=== PATIENT | male | born 1950 | race Caucasian/White ===

== ENCOUNTER 2024-03-11 10:55 | Inpatient (IN) | payer MEDICARE, SELFPAY ==
[2024-03-11] VITALS (54 sets, daily range): BP systolic 73–150; BP diastolic 22–72; PULSE 65–97; RESP 16–34; TEMP 35.2–39.4; O2SAT 80–98; BMI 28.3; BMI 29.1
--- NOTE | ~2024-03-11 | US_ITS ---
EXAMINATION: US TRIPLEX LOWER EXTREMITY, BILATERAL CLINICAL INFORMATION: Dyspnea, hypoxia,? DVT COMPARISON: None available. TECHNIQUE: Color-flow triplex imaging with spectral analysis and compression Doppler were performed on the bilateral lower extremities. FINDINGS: The right calf peroneal and posterior tibial veins are not well visualized. Respiratory variation, normal compression and augmented flow are otherwise noted throughout the bilateral lower extremities. The visualized bilateral common femoral vein, superficial femoral vein, profunda femoral vein, popliteal vein and left midcalf peroneal and posterior tibial venous segments show no evidence of deep venous thrombosis bilaterally. There is no Queen's cyst. US/US venous duplex LE BI IMPRESSION: The right calf peroneal and posterior tibial veins are not well visualized.Otherwise no evidence of deep venous thrombosis involving the bilateral lower extremities. Electronically signed by: Chris You MD 03/12/2024 05:58 PM EDT
--- NOTE | ~2024-03-11 | CT_ITS ---
EXAMINATION: CT HEAD WITHOUT CONTRAST CLINICAL INFORMATION: Altered mental status. COMPARISON: None. TECHNIQUE: Contiguous axial imaging was performed from the skull base to vertex without intravenous administration of contrast. This CT examination was performed using dose optimization techniques as appropriate, variously including the following: *Automated exposure control *Adjustment of mA and/or kV according to patient size (this includes techniques or standardized protocols for targeted exams where dose is matched to indication/reason for exam; i.e. extremities or head) *Use of iterative reconstruction technique DLP: 762 mGy-cm FINDINGS: There is no evidence of acute intracranial hemorrhage or edematous territorial infarction. Scattered hypoattenuation in the periventricular and deep white matter are consistent with moderate microangiopathy. [place]-white matter differentiation is preserved. Proportional prominence of the ventricles and sulcal spaces. No evidence for obstructive hydrocephalus. No abnormal mass effect or midline shift. No extra-axial fluid collections. No acute soft tissue or osseous abnormalities. Partial opacification of the left sphenoidal sinus. Mild mucosal thickening of the remaining of the paranasal sinuses. The mastoids and middle ear cavities are clear. Bilateral lens extraction. CT/CT head/brain wo IV con IMPRESSION: 1. No evidence of acute intracranial hemorrhage or edematous territorial infarction. 2. Chronic microangiopathy and generalized cerebral volume loss. Electronically signed by: Cecy Landin MD 03/11/2024 03:23 PM EDT
--- NOTE | ~2024-03-11 | XR_ITS ---
EXAMINATION: XR CHEST CLINICAL INFORMATION: Shortness of breath. COMPARISON: None available. TECHNIQUE: Frontal view of the chest was obtained. FINDINGS: Right sided chest port tip overlies the expected location of the right atrium. Enlarged cardiomediastinal silhouette. Multifocal patchy and consolidative airspace opacities. Small right pleural effusion. No significant pneumothorax. No acute osseous findings. EKG leads overlie the chest. XR/XR chest 1V IMPRESSION: 1. Multifocal patchy and consolidative airspace opacities concerning for atypical pneumonia. Recommend clinical correlation and short-term follow-up. 2. Small right pleural effusion. 3. Enlarged cardiomediastinal silhouette could represent a combination of cardiomegaly, pericardial effusion and lymphadenopathy. Electronically signed by: Cecy Landin MD 03/11/2024 03:52 PM EDT
--- NOTE | 2024-03-11 11:05 | ECG_ITS ---
Test Reason : AMS Blood Pressure : / mmHG Vent. Rate : 087 BPM Atrial Rate : 087 BPM P-R Int : 146 ms QRS Dur : 076 ms QT Int : 344 ms P-R-T Axes : 016 -10 001 degrees QTc Int : 413 ms Sinus rhythm with Premature supraventricular complexes Minimal voltage criteria for LVH, may be normal variant ( R in aVL ) Nonspecific ST and T wave abnormality Abnormal ECG No previous ECGs available Referred By: Oriana Morales Electronically Signed By:Arie Chapman
[2024-03-11 11:16] LABS: Glucose, Whole Blood 202 mg/dL (60-115)
[2024-03-11] MEDS: 0.9 % Sodium Chloride 1,000 ML 999 ML IV ×2 (11:16→11:17)
[2024-03-11] MEDS: 0.9 % Sodium Chloride 500 ML IV (11:17)
[2024-03-11 11:18] LABS: ABG Base Excess 13.6 mmol/L; ABG HCO3 38 mmol/L (22-26); ABG pCO2 50 mmHg (32-45); ABG pH 7.48 (7.35-7.45); ABG pO2 58 mmHg (83-108)
[2024-03-11] MEDS: vancomycin/NS 2,000 MG/500 ML PLAST..BAG 250 MG IV (11:18)
[2024-03-11 11:19] LABS: Hemoglobin 7.8 g/dl (14.0-18.0); Mean Corpuscular HGB Conc 33.9 g/dl (31.0-36.0); Mean Corpuscular Hemoglobin 30.6 pg (27.0-33.0); Mean Corpuscular Volume 90.2 fL (80.0-98.0); Mean Platelet Volume 10.1 fL (9.4-12.4); Platelet Count 148 X10*3/uL (160-400); Red Blood Count 2.55 X10*6/uL (4.60-5.80); Red Cell Distribution Width 14.6 % (11.0-16.0)
[2024-03-11 11:20] LABS: NRBC Pct Auto 6.3 /100WBC (0.0-0.2); WBC ABN SCTR FOR CBC 1
[2024-03-11] MEDS: cefEPime HCl 1 GM in 0.9 % Sodium Chloride 50 ML IV (11:24)
[2024-03-11] MEDS: Acetaminophen Supp 650 MG SUPP.RECT PR (11:26)
[2024-03-11 11:27] LABS: INTERNATIONAL NORM RATIO 1.4 (0.9-1.1); Prothrombin Time 16.5 SEC (10.9-12.4)
--- NOTE | 2024-03-11 11:28 | ED.AMS ---
HPI - Altered Mental Status General Chief Complaint: Altered Mental Status Stated Complaint: AMS/GROANS:PAIN,SOB 94% 15LPM,LOW BP 69/44FROM SNF Time Seen by Provider: 03/11/24 11:06 Source: patient, family, EMS, RN notes reviewed and old records reviewed Mode of arrival: EMS History of Present Illness ED Provider: Oriana Morales PA-C HPI narrative: 73-year-old male with a past medical history of CKD stage 3, BPH, CHF, HLD, AML s/p stem cell transplant, on chronic steroids, pulmonary edema, gout, HTN, RLE fracture, presenting to ED via EMS from SNF for AMS and hypoxia/SOB x this morning found by staff to be 76% on RA per EMS patient also hypotensive. At baseline is A&O x3 Remaining history limited due to patient's acute mental status. MD complaint: altered mental status and decreased responsiveness Related Data Home Medications ?Medication ?Instructions ?Recorded ?Confirmed acetaminophen 325 mg tablet 650 mg PO DAILY 03/11/24 03/11/24 acyclovir 400 mg tablet 400 mg PO DAILY 03/11/24 03/11/24 albuterol sulfate 2.5 mg/3 mL 2.5 mg inhalation Q6H PRN 03/11/24 03/11/24 (0.083 %) solution for nebulization SOB/Wheezing albuterol sulfate 90 mcg/actuation 2 puff inhalation Q6H PRN 03/11/24 03/11/24 aerosol inhaler Wheezing/SOB aspirin 81 mg tablet,delayed 81 mg PO DAILY 03/11/24 03/11/24 release atorvastatin 40 mg tablet 40 mg PO BEDTIME 03/11/24 03/11/24 belumosudil 200 mg tablet 200 mg PO BID 03/11/24 03/11/24 bisacodyl 10 mg rectal suppository 10 mg OR Q72H PRN No BM/MoM Not 03/11/24 03/11/24 (Dulcolax (bisacodyl)) Effective carvedilol 25 mg tablet 25 mg PO BID 03/11/24 03/11/24 cholecalciferol (vitamin D3) 25 25 mcg PO DAILY 03/11/24 03/11/24 mcg (1,000 unit) tablet (Vitamin D3) cyanocobalamin (vitamin B-12) 250 250 mcg PO DAILY 03/11/24 03/11/24 mcg tablet (Vitamin B-12) cyclosporine 0.05 % eye drops 1 drp ophthalmic (eye) BID 03/11/24 03/11/24 diclofenac sodium 1 % topical gel 1 g topical Q12H PRN Discomfort 03/11/24 03/11/24 erythromycin 5 mg/gram (0.5 %) eye 1 appl ophthalmic-Left Q6H PRN 03/11/24 03/11/24 ointment Pain/Iterated Eyes esomeprazole magnesium 20 mg 20 mg PO DAILY@0630 03/11/24 03/11/24 tablet,delayed release finasteride 5 mg tablet 5 mg PO BEDTIME 03/11/24 03/11/24 fluticasone 500 mcg-salmeterol 50 2 inh inhalation DAILY 03/11/24 03/11/24 mcg/dose blistr powdr for inhalation (Wixela Inhub) furosemide 40 mg tablet 40 mg PO BID 03/11/24 03/11/24 gabapentin 300 mg capsule 300 mg PO TID 03/11/24 03/11/24 heparin (porcine) 5,000 unit/mL 5,000 unit subcut Q12H 03/11/24 03/11/24 injection solution hydromorphone 2 mg tablet 2 mg PO Q4H PRN Sever Pain 03/11/24 03/11/24 (Dilaudid) isavuconazonium sulfate 186 mg 372 mg PO BEDTIME 03/11/24 03/11/24 capsule (Cresemba) lactulose 20 gram oral packet 20 g PO DAILY PRN Constipation 03/11/24 03/11/24 loratadine 10 mg tablet 10 mg PO BEDTIME 03/11/24 03/11/24 lorazepam 0.5 mg tablet 0.5 mg PO BEDTIME PRN Anxiety 03/11/24 03/11/24 magnesium hydroxide 400 mg/5 mL 30 ml PO DAILY PRN Constipation 03/11/24 03/11/24 oral suspension (Milk of Magnesia) magnesium oxide 420 mg tablet 420 mg PO DAILY 03/11/24 03/11/24 mirtazapine 15 mg tablet 15 mg PO BEDTIME 03/11/24 03/11/24 montelukast 10 mg tablet 10 mg PO BEDTIME 03/11/24 03/11/24 multivitamin 1 tab PO DAILY 03/11/24 03/11/24 oxycodone 10 mg tablet 10 mg PO Q4H PRN Pain 03/11/24 03/11/24 polyethylene glycol 3350 17 17 g PO BID 03/11/24 03/11/24 gram/dose oral powder prednisone 20 mg tablet 40 mg PO DAILY 03/11/24 03/11/24 prochlorperazine maleate 5 mg 5 mg PO Q8H PRN Nausea/Vomiting 03/11/24 03/11/24 tablet ruxolitinib 5 mg tablet 5 mg PO BID 03/11/24 03/11/24 sennosides 8.6 mg tablet 17.2 mg PO BID PRN Constipation 03/11/24 03/11/24 sodium chloride 0.9 % nasal spray 1 spray intranasal DAILY PRN 03/11/24 03/11/24 aerosol Allergies sodium chloride 1,000 mg soluble 1,000 mg PO TID 03/11/24 03/11/24 tablet sodium phosphates 19 gram-7 118 ml OR DAILY PRN 03/11/24 03/11/24 gram/118 mL enema (Fleet Enema) Constipation/No Relief from Dulcolax sulfamethoxazole 800 1 tab PO BID 03/11/24 03/11/24 mg-trimethoprim 160 mg tablet (Bactrim DS) tamsulosin 0.4 mg capsule 0.8 mg PO BEDTIME 03/11/24 03/11/24 tiotropium bromide 18 mcg capsule 1 cap inhalation DAILY 03/11/24 03/11/24 with inhalation device Allergies Allergy/AdvReac Type Severity Reaction Status Date / Time lisinopril Allergy Unknown Verified 03/11/24 11:04 Review of Systems Review of Systems: Yes all other systems are reviewed and are negative Constitutional: Constitutional: Reports as per [facility] Past Medical History Attestation statement: The following information was validated with the patient. Source: old records reviewed Social History Social History Unable to assess alcohol history related to: Unable to respond Advance Directives Date on File: 03/11/24 Physical Exam ED Vital Signs: Vital Signs - 24 hr 03/11/24 10:57 03/11/24 11:10 03/11/24 11:15 Temperature 103 F H 103 F H Pulse Rate 86 Respiratory Rate 34 H Blood Pressure 91/34 L Pulse Oximetry 80 L Oxygen Delivery Method Room Air Oxygen Flow Rate 03/11/24 11:15 03/11/24 11:36 03/11/24 11:47 Temperature 100.9 F H Pulse Rate 87 89 Respiratory Rate 34 H 26 H 30 H Blood Pressure 100/46 L 89/68 L Pulse Oximetry 98 91 L Oxygen Delivery Method Non-Rebreather Mask High Flow Nasal Cannula Oxygen Flow Rate 25 40 03/11/24 11:50 03/11/24 12:05 03/11/24 12:14 Temperature Pulse Rate 92 74 83 Respiratory Rate Blood Pressure 89/68 L 95/36 L 87/29 L Pulse Oximetry Oxygen Delivery Method Oxygen Flow Rate 03/11/24 12:16 03/11/24 12:24 03/11/24 12:28 Temperature Pulse Rate 85 83 Respiratory Rate 20 32 H Blood Pressure 85/37 L 85/37 L Pulse Oximetry 90 L Oxygen Delivery Method High Flow Nasal Cannula Oxygen Flow Rate 45 03/11/24 12:53 03/11/24 13:04 03/11/24 13:13 Temperature Pulse Rate 79 79 78 Respiratory Rate Blood Pressure 86/31 L 86/34 L 88/39 L Pulse Oximetry Oxygen Delivery Method Oxygen Flow Rate 03/11/24 13:33 03/11/24 13:36 03/11/24 13:54 Temperature Pulse Rate 78 80 83 Respiratory Rate 30 H Blood Pressure 84/31 L 73/33 L 82/53 L Pulse Oximetry Oxygen Delivery Method Oxygen Flow Rate 03/11/24 13:54 03/11/24 14:02 03/11/24 14:06 Temperature 99.3 F Pulse Rate 84 79 80 Respiratory Rate 28 H Blood Pressure 82/53 L 86/39 L 90/43 L Pulse Oximetry Oxygen Delivery Method Oxygen Flow Rate 03/11/24 14:09 Temperature Pulse Rate 81 Respiratory Rate Blood Pressure 99/42 L Pulse Oximetry 87 L Oxygen Delivery Method High Flow Nasal Cannula Oxygen Flow Rate 45 BMI result Body Mass Index 29.1 Const Other: Lethargic, moans to tactile stimuli Limitations: altered mental status [facility] Head: Yes normal to inspection and Yes atraumatic Ears: hearing grossly normal bilaterally General nose exam: Normal external nose present Face and sinus: Yes normal facial exam Eyes General: appearance normal, both eyes and all related structures EOM: EOMs intact bilaterally Neck Neck: Yes normal visual inspection and Yes no meningeal signs Resp Effort & Inspection: respiratory distress Auscultation: diminished lung sounds diffuse Cardio Rate: regular rate Heart sounds: S1 normal heart sound present and S2 normal heart sound present GI Inspection: Yes normal to inspection Palpation (GI): Soft to palpation, nontender, no guarding and not rigid Skin Other: Healing ecchymosis diffusely, suspect from old fall Rashes: no rashes Neuro General: tone normal and no meningeal signs Extrem Other: Knee immobilizer intact to RLE General: Yes normal to inspection Course Course Course Narrative: -1300--no leukocytosis. H/H around patient's baseline. 45% bands. -pC02 - 50 -MARICARMEN on CKD. Initial troponin 442.4 likely from CKD/hypoxia > will obtain repeat. BNP 1,165 -UA not infected -COVID/flu/RSV negative >1323--patient persistent she hypotensive will initiate Levophed through patient's port > patient back from CT and persistent a hypoxic/hypotensive. Levophed running/increased, respiratory at bedside increased O2 to 100%. Will speak with community placement worker, Dr. العلي -[phone]--community placement worker at bedside Medications Administered Generic Name Dose Route Start Last Admin Trade Name Freq PRN Reason Stop Dose Admin Heparin Sodium (Porcine) 5,000 unit 03/11/24 14:15 03/11/24 14:35 Heparin Sodium,Porcine 5,000 Unit/Ml Vial SUBCUT 5,000 unit Q8H RUIZ Administration Hydrocortisone Sodium Succinate 100 mg 03/11/24 14:15 03/11/24 14:30 Hydrocortisone Sod Succ/Pf 100 Mg Vial IVPUSH 100 mg Q8H RUIZ Administration Norepinephrine Bitartrate 8 mg in 250 mls @ 0 mls/hr 03/11/24 13:15 03/11/24 16:12 Levophed IVCONT 0.31 mcg/kg/min .Q0M RUIZ 55.1 mls/hr Titration Protocol Per Protocol Meropenem 2 gm 03/11/24 14:30 03/11/24 15:02 Meropenem 1 Gm Vial IVPUSH 2 gm Q12H RUIZ Administration Discontinued Medications Generic Name Dose Route Start Last Admin Trade Name Freq PRN Reason Stop Dose Admin Acetaminophen 650 mg 03/11/24 11:10 03/11/24 11:26 Acetaminophen Supp 650 Mg Supp.Rect OR 03/11/24 11:11 650 mg ONCE ONE Administration Cefepime HCl 1 gm/ Sodium 50 mls @ 100 mls/hr 03/11/24 11:10 03/11/24 11:57 Chloride IV 03/11/24 11:39 Infused ONCE ONE Infusion Vancomycin HCl 2,000 mg in 500 mls @ 250 mls/hr 03/11/24 11:10 03/11/24 13:18 Vancomycin/Ns IV 03/11/24 13:09 Infused ONCE ONE Infusion Sodium Chloride 1,000 mls @ 999 mls/hr 03/11/24 11:12 03/11/24 12:49 Ns IV 03/11/24 12:12 Infused .Q1H1M ONE Infusion Sodium Chloride 500 mls @ 500 mls/hr 03/11/24 11:12 03/11/24 12:49 Ns IV 03/11/24 12:11 Infused .Q1H ONE Infusion Sodium Chloride 1,000 mls @ 999 mls/hr 03/11/24 11:12 03/11/24 12:49 Ns IV 03/11/24 12:12 Infused .Q1H1M ONE Infusion Albumin Human 100 mls @ 100 mls/hr 03/11/24 14:15 03/11/24 16:04 Kedbumin 25 % IV 03/11/24 16:14 100 mls/hr Q1H RUIZ Administration Medical Decision Making Medical Decision Making MDM Narrative: 73-year-old male with a past medical history of CKD stage 3, BPH, CHF, HLD, AML s/p stem cell transplant, on chronic steroids, pulmonary edema, gout, HTN, RLE fracture, presenting to ED via EMS from [facility] for AMS and hypoxia/SOB x this morning found by staff to be 76% on RA per EMS patient also hypotensive. On exam febrile to 103 rectally, hypotensive, tachycardic, tachypneic, hypoxic 80% on RA improved to 98% on high-flow nasal cannula. Diminished lung sounds throughout. Concern for sepsis. Patient is anticoagulated on heparin b.i.d., lower suspicion for DVT/PE at this time. Rule out pneumonia vs UTI. Lower suspicion for CVA/TIA with fever. Plan: EKG, labs, UA, CXR, head CT, lactic/blood cultures, empiric IV antibiotics. Patient is obese IBW = 77.7 kg x 30cc/kg = 2331 Please refer to course for remaining clinical decision making, interpretation of labs/imaging results, and discussions with consultants and/or family members. Differential Diagnosis Differential Diagnoses: The differential diagnosis associated with the presentation includes As above Admission/Observation Consideration of admission/observation: Escalation of care including admission/observation considered Lab Data MDM Lab Attestation statement: I reviewed the patient's lab results. 03/11/24 11:10 03/11/24 11:35 Labs: Lab Results 03/11/24 03/11/24 03/11/24 Range/Units 11:04 11:08 11:10 WBC 5.0 (4.8-10.8) X10*3/uL RBC 2.55 L (4.60-5.80) X10*6/uL Hgb 7.8 L (14.0-18.0) g/dl Hct 23.0 L (42.0-52.0) % MCV 90.2 (80.0-98.0) fL MCH 30.6 (27.0-33.0) pg MCHC 33.9 (31.0-36.0) g/dl RDW 14.6 (11.0-16.0) % Plt Count 148 L (160-400) X10*3/uL MPV 10.1 (9.4-12.4) fL Immature Gran % (Auto) Cancelled Neut % (Auto) Cancelled Lymph % (Auto) Cancelled [place] % (Auto) Cancelled Eos % (Auto) Cancelled Baso % (Auto) Cancelled Lymph # (Auto) Cancelled [place] # (Auto) Cancelled Eos # (Auto) Cancelled Baso # (Auto) Cancelled Abs Immat Gran (auto) Cancelled Absolute Neuts (auto) Cancelled Absolute Nucleated RBC 0.310 H (0.0-0.012) X10*3/uL Nucleated RBC % (auto) 6.3 H (0.0-0.2) /100WBC Neutrophils % (Manual) 43 L (45-73) % Band Neutrophils % 45 H (3-5) % Lymphocytes % (Manual) 6 L (20-40) % Monocytes % (Manual) 4 (2-11) % Metamyelocytes % 2 % Abs Neuts (Manual) 4.4 (2.0-8.3) X10*3/uL Lymphocytes # (Manual) 0.3 L (1.2-4.9) X10*3/uL Monocytes # (Manual) 0.2 (0.1-1.2) X10*3/uL Metamyelocytes # 0.1 X10*3/uL Nucleated RBCs 10 H (0-0) /100WBC Smudge Cells PRESENT Dohle Bodies PRESENT Platelet Estimate SLIGHTLY DECREASED (NORMAL) Plt Morphology Comment NORMAL RBC Morphology NOTED Polychromasia 1+ (0-2) /OIF Hypochromasia 1+ (5-14) /OIF Microcytosis 1+ (5-14) /OIF PT 16.5 H (10.9-12.4) SEC INR 1.4 H (0.9-1.1) O2 Saturation 85.0 % ABG pH at Pt Temp 7.48 H (7.35-7.45) ABG pCO2 at Pt Temp 50 H (32-45) mmHg ABG pO2 at Pt Temp 58 L (83-108) mmHg ABG HCO3 38 H (22-26) mmol/L ABG Base Excess (Actual) 13.6 mmol/L Sodium (135-145) mmol/L Potassium (3.3-5.1) mmol/L Chloride (96-108) mmol/L Carbon Dioxide (22-29) mmol/L Anion Gap (12-20) BUN (9-16) mg/dL Creatinine (0.5-1.4) mg/dL Estim Creat Clear Calc Estimated GFR POC Glucose 202 H (60-115) mg/dL Random Glucose (60-115) mg/dL Lactic Acid (0.5-2.0) mmol/L Calcium (8.4-10.2) mg/dL Magnesium (1.6-2.6) mg/dL Total Bilirubin (0.0-1.0) mg/dL Direct Bilirubin (0.0-0.5) mg/dL AST (5-37) U/L ALT (0-40) U/L Alkaline Phosphatase (39-117) U/L Ammonia (13-55) umol/L Troponin I High Sens (<3.5-35.0) ng/L B-Natriuretic Peptide 1165 H (<100) pg/mL Total Protein (6.5-8.0) g/dL Albumin (3.5-5.0) g/dL Lipase (8-78) U/L Urine Color Urine Appearance Urine pH (5.0-9.0) Ur Specific [place] (1.005-1.025) Urine Protein (Neg-Trace) mg/dL Urine Glucose (UA) (Negative) mg/dL Urine Ketones (Negative) mg/dL Urine Blood (Negative) Urine Nitrite (Negative) Ur Leukocyte Esterase (Negative) Urine RBC (0-2) /HPF Urine WBC (0-5) /HPF Ur Squamous Epith Cells (0-2) /HPF Urine Bacteria (None Seen) Hyaline Casts (0-2) /LPF Urine Opiates Screen (Not Detect) Ur Buprenorphine Scrn (Not Detect) ng/mL Ur Oxycodone Screen (Not Detect) ng/mL Urine Methadone Screen (Not Detect) ng/mL Urine Fentanyl Screen (Not Detect) Ur Barbiturates Screen (Not Detect) Ur Phencyclidine Scrn (Not Detect) Ur Amphetamines Screen (Not Detect) U Benzodiazepines Scrn (Not Detect) Urine Cocaine Screen (Not Detect) U Marijuana (THC) Screen (Not Detect) Influenza Type A (PCR) (Negative) Influenza Type B (PCR) (Negative) RSV RNA Qual (PCR) (Negative) SARS-CoV-2 RNA (RT-PCR) (Negative) 03/11/24 03/11/24 03/11/24 Range/Units 11:11 11:34 11:35 WBC (4.8-10.8) X10*3/uL RBC (4.60-5.80) X10*6/uL Hgb (14.0-18.0) g/dl Hct (42.0-52.0) % MCV (80.0-98.0) fL MCH (27.0-33.0) pg MCHC (31.0-36.0) g/dl RDW (11.0-16.0) % Plt Count (160-400) X10*3/uL MPV (9.4-12.4) fL Immature Gran % (Auto) Neut % (Auto) Lymph % (Auto) [place] % (Auto) Eos % (Auto) Baso % (Auto) Lymph # (Auto) [place] # (Auto) Eos # (Auto) Baso # (Auto) Abs Immat Gran (auto) Absolute Neuts (auto) Absolute Nucleated RBC (0.0-0.012) X10*3/uL Nucleated RBC % (auto) (0.0-0.2) /100WBC Neutrophils % (Manual) (45-73) % Band Neutrophils % (3-5) % Lymphocytes % (Manual) (20-40) % Monocytes % (Manual) (2-11) % Metamyelocytes % % Abs Neuts (Manual) (2.0-8.3) X10*3/uL Lymphocytes # (Manual) (1.2-4.9) X10*3/uL Monocytes # (Manual) (0.1-1.2) X10*3/uL Metamyelocytes # X10*3/uL Nucleated RBCs (0-0) /100WBC Smudge Cells Dohle Bodies Platelet Estimate (NORMAL) Plt Morphology Comment RBC Morphology Polychromasia /OIF Hypochromasia /OIF Microcytosis /OIF PT (10.9-12.4) SEC INR (0.9-1.1) O2 Saturation % ABG pH at Pt Temp (7.35-7.45) ABG pCO2 at Pt Temp (32-45) mmHg ABG pO2 at Pt Temp (83-108) mmHg ABG HCO3 (22-26) mmol/L ABG Base Excess (Actual) mmol/L Sodium 138 (135-145) mmol/L Potassium 4.7 (3.3-5.1) mmol/L Chloride 95 L (96-108) mmol/L Carbon Dioxide 35 H (22-29) mmol/L Anion Gap 13 (12-20) BUN 48 H (9-16) mg/dL Creatinine 2.81 H (0.5-1.4) mg/dL Estim Creat Clear Calc 27.1 Estimated GFR 22 POC Glucose (60-115) mg/dL Random Glucose 219 H (60-115) mg/dL Lactic Acid 1.7 (0.5-2.0) mmol/L Calcium 8.5 D (8.4-10.2) mg/dL Magnesium 2.1 (1.6-2.6) mg/dL Total Bilirubin 0.6 (0.0-1.0) mg/dL Direct Bilirubin 0.4 (0.0-0.5) mg/dL AST 54 H (5-37) U/L ALT 31 (0-40) U/L Alkaline Phosphatase 153 H (39-117) U/L Ammonia 31 (13-55) umol/L Troponin I High Sens 444.2 H* (<3.5-35.0) ng/L B-Natriuretic Peptide (<100) pg/mL Total Protein 5.2 L (6.5-8.0) g/dL Albumin 2.5 L (3.5-5.0) g/dL Lipase 13 (8-78) U/L Urine Color Urine Appearance Urine pH (5.0-9.0) Ur Specific [place] (1.005-1.025) Urine Protein (Neg-Trace) mg/dL Urine Glucose (UA) (Negative) mg/dL Urine Ketones (Negative) mg/dL Urine Blood (Negative) Urine Nitrite (Negative) Ur Leukocyte Esterase (Negative) Urine RBC (0-2) /HPF Urine WBC (0-5) /HPF Ur Squamous Epith Cells (0-2) /HPF Urine Bacteria (None Seen) Hyaline Casts (0-2) /LPF Urine Opiates Screen (Not Detect) Ur Buprenorphine Scrn (Not Detect) ng/mL Ur Oxycodone Screen (Not Detect) ng/mL Urine Methadone Screen (Not Detect) ng/mL Urine Fentanyl Screen (Not Detect) Ur Barbiturates Screen (Not Detect) Ur Phencyclidine Scrn (Not Detect) Ur Amphetamines Screen (Not Detect) U Benzodiazepines Scrn (Not Detect) Urine Cocaine Screen (Not Detect) U Marijuana (THC) Screen (Not Detect) Influenza Type A (PCR) NEGATIVE (Negative) Influenza Type B (PCR) NEGATIVE (Negative) RSV RNA Qual (PCR) NEGATIVE (Negative) SARS-CoV-2 RNA (RT-PCR) NEGATIVE (Negative) 03/11/24 03/11/24 Range/Units 11:43 11:46 WBC (4.8-10.8) X10*3/uL RBC (4.60-5.80) X10*6/uL Hgb (14.0-18.0) g/dl Hct (42.0-52.0) % MCV (80.0-98.0) fL MCH (27.0-33.0) pg MCHC (31.0-36.0) g/dl RDW (11.0-16.0) % Plt Count (160-400) X10*3/uL MPV (9.4-12.4) fL Immature Gran % (Auto) Neut % (Auto) Lymph % (Auto) [place] % (Auto) Eos % (Auto) Baso % (Auto) Lymph # (Auto) [place] # (Auto) Eos # (Auto) Baso # (Auto) Abs Immat Gran (auto) Absolute Neuts (auto) Absolute Nucleated RBC (0.0-0.012) X10*3/uL Nucleated RBC % (auto) (0.0-0.2) /100WBC Neutrophils % (Manual) (45-73) % Band Neutrophils % (3-5) % Lymphocytes % (Manual) (20-40) % Monocytes % (Manual) (2-11) % Metamyelocytes % % Abs Neuts (Manual) (2.0-8.3) X10*3/uL Lymphocytes # (Manual) (1.2-4.9) X10*3/uL Monocytes # (Manual) (0.1-1.2) X10*3/uL Metamyelocytes # X10*3/uL Nucleated RBCs (0-0) /100WBC Smudge Cells Dohle Bodies Platelet Estimate (NORMAL) Plt Morphology Comment RBC Morphology Polychromasia /OIF Hypochromasia /OIF Microcytosis /OIF PT (10.9-12.4) SEC INR (0.9-1.1) O2 Saturation % ABG pH at Pt Temp (7.35-7.45) ABG pCO2 at Pt Temp (32-45) mmHg ABG pO2 at Pt Temp (83-108) mmHg ABG HCO3 (22-26) mmol/L ABG Base Excess (Actual) mmol/L Sodium (135-145) mmol/L Potassium (3.3-5.1) mmol/L Chloride (96-108) mmol/L Carbon Dioxide (22-29) mmol/L Anion Gap (12-20) BUN (9-16) mg/dL Creatinine (0.5-1.4) mg/dL Estim Creat Clear Calc Estimated GFR POC Glucose (60-115) mg/dL Random Glucose (60-115) mg/dL Lactic Acid (0.5-2.0) mmol/L Calcium (8.4-10.2) mg/dL Magnesium (1.6-2.6) mg/dL Total Bilirubin (0.0-1.0) mg/dL Direct Bilirubin (0.0-0.5) mg/dL AST (5-37) U/L ALT (0-40) U/L Alkaline Phosphatase (39-117) U/L Ammonia (13-55) umol/L Troponin I High Sens (<3.5-35.0) ng/L B-Natriuretic Peptide (<100) pg/mL Total Protein (6.5-8.0) g/dL Albumin (3.5-5.0) g/dL Lipase (8-78) U/L Urine Color Dark Yellow Urine Appearance Clear Urine pH 5.5 (5.0-9.0) Ur Specific [place] 1.015 (1.005-1.025) Urine Protein 30 (1+) H (Neg-Trace) mg/dL Urine Glucose (UA) 500 H (Negative) mg/dL Urine Ketones Negative (Negative) mg/dL Urine Blood Negative (Negative) Urine Nitrite Negative (Negative) Ur Leukocyte Esterase Negative (Negative) Urine RBC 0-2 (0-2) /HPF Urine WBC 0-5 (0-5) /HPF Ur Squamous Epith Cells 0-2 (0-2) /HPF Urine Bacteria None Seen (None Seen) Hyaline Casts 3-5 (0-2) /LPF Urine Opiates Screen POSITIVE H (Not Detect) Ur Buprenorphine Scrn Not Detected (Not Detect) ng/mL Ur Oxycodone Screen Positive H (Not Detect) ng/mL Urine Methadone Screen Not Detected (Not Detect) ng/mL Urine Fentanyl Screen Not Detected (Not Detect) Ur Barbiturates Screen Not Detected (Not Detect) Ur Phencyclidine Scrn Not Detected (Not Detect) Ur Amphetamines Screen Not Detected (Not Detect) U Benzodiazepines Scrn Not Detected (Not Detect) Urine Cocaine Screen Not Detected (Not Detect) U Marijuana (THC) Screen Not Detected (Not Detect) Influenza Type A (PCR) (Negative) Influenza Type B (PCR) (Negative) RSV RNA Qual (PCR) (Negative) SARS-CoV-2 RNA (RT-PCR) (Negative) Radiology Impression Discussion of test interpretation with radiology: I have reviewed the radiologist's reading. External Record Review External record reviewed: Inpatient record, Office record, Outpatient record, Prior outpatient labs, Prior outpatient radiology, Primary care record and Outside ED record Tests considered The following testing was considered but not selected: As above Critical Care Time Critical Care Time Critical Care Time: Yes Total Critical Care Time: 65 Attestation: I have personally provided critical care time exclusive of time spent on separately billable procedures. Time includes review of lab data, radiology results, discussion with consultants, and monitoring for potential decompensation. Intervention performed as documented. Discharge Plan Discharge Clinical Impression: Sepsis Patient Disposition: Admitted As Inpatient Interventions: Admission Worksheet (ED) Last Done: 03/11/24 15:42 Discharge Date/Time: 03/11/24 15:43
--- NOTE | 2024-03-11 11:31 | PC.NURSE ---
Pt placed on HFNC by RT, settings 40L, 80%
[2024-03-11 11:32] LABS: Lactic Acid 1.7 mmol/L (0.5-2.0)
[2024-03-11 11:42] LABS: B Type Natriuretic Peptide 1165 pg/mL (<100)
[2024-03-11 11:47] LABS: Troponin-I High Sensitivity 444.2 ng/L (<3.5-35.0)
[2024-03-11 11:51] LABS: Appearance Urine Clear; Color Urine Dark Yellow; Glucose Urine UA 500 mg/dL (Negative); Leukocyte Esterase Urine Negative (Negative); Nitrite Urine Negative (Negative); PH 5.5 (5.0-9.0); Specific Gravity - Urine 1.015 (1.005-1.025); UMIC TRIGGER UACC YES; Urine Blood Negative (Negative); Urine Ketones Negative (Negative); Urine Protein 30 (1+) mg/dL (Neg-Trace)
[2024-03-11 11:53] LABS: Bacteria Urine None Seen (None Seen); RBC Urine 0-2 /HPF (0-2); Squamous Epithelial Cell Urine 0-2 /HPF (0-2); WBC Urine 0-5 /HPF (0-5)
[2024-03-11 11:54] LABS: Ammonia 31 umol/L (13-55)
[2024-03-11 12:02] LABS: Amphetamine Screen Urine Not Detected (Not Detect); Barbiturates, Urine Not Detected (Not Detect); Benzodiazepines Screen Urine Not Detected (Not Detect); Buprenorphine Scr Not Detected (Not Detect); Cannabinoid Screen Urine Not Detected (Not Detect); Cocaine Screen Urine Not Detected (Not Detect); Fentanyl, urine Not Detected (Not Detect); Methadone Screen, Urine Not Detected (Not Detect); Opiate Screen Urine POSITIVE (Not Detect); Oxycodone Screen Urine Positive (Not Detect); Phencyclidine Screen Urine Not Detected (Not Detect)
[2024-03-11 12:03] LABS: Alanine Aminotransferase 31 U/L (0-40); Albumin Level 2.5 g/dL (3.5-5.0); Alkaline Phosphatase 153 U/L (39-117); Anion Gap 13 (12-20); Aspartate Amino Transferase 54 U/L (5-37); Bilirubin Direct 0.4 mg/dL (0.0-0.5); Bilirubin Total 0.6 mg/dL (0.0-1.0); Blood Urea Nitrogen 48 mg/dL (9-16); Calcium 8.5 mg/dL (8.4-10.2); Carbon Dioxide 35 mmol/L (22-29); Chloride 95 mmol/L (96-108); Creatinine Clr Calc Pharmacy 27.1; Estimated Glomerular Filt Rate 22; Glucose Random 219 mg/dL (60-115); Lipase 13 U/L (8-78); Magnesium 2.1 mg/dL (1.6-2.6); Potassium 4.7 mmol/L (3.3-5.1); Sodium 138 mmol/L (135-145); Total Protein 5.2 g/dL (6.5-8.0)
[2024-03-11 12:10] LABS: Neutrophils Percent Manual 43 % (45-73)
[2024-03-11 12:11] LABS: Band Neutrophils Percent 45 % (3-5); Dohle Bodies PRESENT; Hypochromasia 1+ (5-14) /OIF; Lymphocytes Percent Manual 6 % (20-40); Metamyelocytes Percent 2 %; Microcytosis 1+ (5-14) /OIF; Monocytes Percent Manual 4 % (2-11); Nucleated Red Blood Cells 10 /100WBC (0-0); Platelet Estimate SLIGHTLY DECREASED (NORMAL); Platelet Morphology Comment NORMAL; Polychromasia 1+ (0-2) /OIF; RBC Morphology NOTED; Smudge Cells PRESENT
--- NOTE | 2024-03-11 12:11 | PC.NURSE ---
Late entry: Pt presents to ED via EMS from SNF ([facility]) for AMS and hypoxia/ SOB. Facility reports they found pt to be altered and hypoxic at 76% on RA today, last night he was alert and oriented (baseline) and had no distress. Facility gave 2 duo nebs and pt worsened, per EMS they placed pt on 15L NRB (he improved to mid 90s) and BP was in the 60s systolic. On arrival, pt only moans to pain, no talking. Breathing labored and pt hypoxic in the 80s. Skin hot and clammy. Rectal temp 103 F. NSR on bedside panel monitor. IVs placed and pt medicated per JUL.
[2024-03-11 12:13] LABS: Lymphocytes Absolute Manual 0.3 X10*3/uL (1.2-4.9); Metamyelocytes Absolute 0.1 X10*3/uL; Monocytes Absolute Manual 0.2 X10*3/uL (0.1-1.2); Neutrophils Absolute Manual 4.4 X10*3/uL (2.0-8.3)
[2024-03-11 12:26] LABS: Influenza A PCR NEGATIVE (Negative); Influenza B PCR NEGATIVE (Negative); Resp Syncy Virus RNA Qual PCR NEGATIVE (Negative); SARS COV2 PCR INHOUSE NEGATIVE (Negative)
--- NOTE | 2024-03-11 12:29 | PC.NURSE ---
RT adjusted HFNC to 45 literals, 90%
[2024-03-11] MEDS: Norepinephrine Bitartrate/D5W 8 MG/250 ML PLAST..BAG 8.89 MG IVCONT (13:36)
--- NOTE | 2024-03-11 13:55 | PC.NURSE ---
Pt started on norepi drip due to hypotension, titrated per MAR
--- NOTE | 2024-03-11 14:08 | PC.NURSE ---
Port access on right side of chest, utilized for norepi drip
[2024-03-11] MEDS: Hydrocortisone Sod Succ/PF 100 MG VIAL IVPUSH ×2 (14:30→21:53)
[2024-03-11] MEDS: Heparin Sodium,Porcine 5,000 UNIT/ML VIAL 5000 UNIT SUBCUT ×2 (14:35→21:53)
[2024-03-11] MEDS: Albumin Human 25 % 100 ML IV ×2 (14:38→16:04)
[2024-03-11] MEDS: Meropenem 1 GM VIAL 2 GM IVPUSH (15:02)
--- NOTE | 2024-03-11 15:05 | PM.CCHP ---
History of Present Illness Date of Service: 03/11/24 Chief Complaint: Dyspnea, hypotension 73-year-old gentleman with underlying history of CKD stage 3, BPH, congestive heart failure, AML status post stem cell transplant in 2019, on chronic prednisone 40 mg daily, with right-sided Port-A-Cath in DNR/DNI status admitted on 03/11/2024 from half-way facility with complains of hypoxia and alteration of mental status. On ER evaluation patient in shock with poor response to initial IV fluid resuscitation requiring pressor support. Also, with significant hypoxia requiring maximum support from high-flow nasal cannula. Per family members patient with history of multiple resistant infections. Started on meropenem, vancomycin, stress dose steroids and admitted to intensive care unit. Review of Systems Review of Systems: Yes Unobtainable due to mental status (Confused) Neurologic: Reports confusion Psychiatric: Psychiatric: Reports confusion [facility] Social History Social History Unable to assess alcohol history related to: Unable to respond Use of substances other than those prescribed or required for medical reasons: Unable to respond Advance Directives: Yes Advance Directives on File: Yes Advance Directives Date on File: 03/11/24 Meds Allergies Allergy/AdvReac Type Severity Reaction Status Date / Time lisinopril Allergy Unknown Verified 03/11/24 11:04 Active Medications: Current Medications Heparin Sodium (Porcine) (Heparin Sodium,Porcine 5,000 Unit/Ml Vial) 5,000 unit SUBCUT Q8H [facility] Last Admin: 03/11/24 14:35 Dose: 5,000 unit Hydrocortisone Sodium Succinate (Hydrocortisone Sod Succ/Pf 100 Mg Vial) 100 mg IVPUSH Q8H [facility]UIZ Last Admin: 03/11/24 14:30 Dose: 100 mg Norepinephrine Bitartrate (Levophed) 8 mg in 250 mls @ 0 mls/hr IVCONT .Q0M [facility]; Protocol Last Titration: 03/11/24 15:02 Dose: 0.19 mcg/kg/min, 33.77 mls/hr Albumin Human (Kedbumin 25 %) 100 mls @ 100 mls/hr IV Q1H [facility]UIZ Stop: 03/11/24 16:14 Last Admin: 03/11/24 14:38 Dose: 100 mls/hr Meropenem (Meropenem 1 Gm Vial) 2 gm IVPUSH Q12H [facility] Last Admin: 03/11/24 15:02 Dose: 2 gm Physical Exam Vital Signs: Vital Signs: Last Vital Signs Temp 99.3 F 03/11/24 14:06 Pulse 77 03/11/24 15:02 Resp 22 H 03/11/24 14:56 BP 96/46 L 03/11/24 15:02 Pulse Ox 87 L 03/11/24 14:09 O2 Del Method High Flow Nasal C annula 03/11/24 14:09 O2 Flow Rate 45 03/11/24 14:09 BMI result Body Mass Index 29.1 Const: General: no acute distress, confusion and lethargic (Arousal) Nutritional Appearance: Edematous Orientation/consciousness: confusion and lethargic (Arousal) Eyes: Sclerae: sclerae normal EOM: EOMs intact bilaterally Neck: Neck: Yes no lymphadenopathy, Yes trachea midline and Yes supple Resp: Effort & Inspection: tachypneic Auscultation: crackles (Bilateral) Cardio: Rate: regular rate Rhythm: regular rhythm Heart sounds: no gallops, no murmurs and no rubs GI: Palpation (GI): Soft to palpation and Other GI palpation findings present ( Nontender) Auscultation: normal bowel sounds Neuro: General: confusion Extrem: General: No clubbing, No cyanosis and Yes edema (1+ bilateral) Results Labs 03/11/24 11:10 03/11/24 11:35 Labs: Laboratory Results - last 24 hr 03/11/24 03/11/24 03/11/24 11:04 11:08 11:10 MCV 90.2 MCH 30.6 MCHC 33.9 RDW 14.6 Plt Count 148 L MPV 10.1 Immature Gran % (Auto) Cancelled Neut % (Auto) Cancelled Lymph % (Auto) Cancelled [place] % (Auto) Cancelled Eos % (Auto) Cancelled Baso % (Auto) Cancelled Lymph # (Auto) Cancelled [place] # (Auto) Cancelled Eos # (Auto) Cancelled Baso # (Auto) Cancelled Abs Immat Gran (auto) Cancelled Absolute Neuts (auto) Cancelled Absolute Nucleated RBC 0.310 H Nucleated RBC % (auto) 6.3 H Neutrophils % (Manual) 43 L Band Neutrophils % 45 H Lymphocytes % (Manual) 6 L Monocytes % (Manual) 4 Metamyelocytes % 2 Abs Neuts (Manual) 4.4 Lymphocytes # (Manual) 0.3 L Monocytes # (Manual) 0.2 Metamyelocytes # 0.1 Nucleated RBCs 10 H Smudge Cells PRESENT Dohle Bodies PRESENT Platelet Estimate SLIGHTLY DECREASED Plt Morphology Comment NORMAL RBC Morphology NOTED Polychromasia 1+ (0-2) Hypochromasia 1+ (5-14) Microcytosis 1+ (5-14) PT 16.5 H INR 1.4 H O2 Saturation 85.0 ABG pH at Pt Temp 7.48 H ABG pCO2 at Pt Temp 50 H ABG pO2 at Pt Temp 58 L ABG HCO3 38 H ABG Base Excess (Actual) 13.6 Anion Gap Estim Creat Clear Calc Estimated GFR POC Glucose 202 H Random Glucose Lactic Acid Calcium Magnesium Total Bilirubin Direct Bilirubin AST ALT Alkaline Phosphatase Ammonia Troponin I High Sens B-Natriuretic Peptide 1165 H Total Protein Albumin Lipase Urine Color Urine Appearance Urine pH Ur Specific [place] Urine Protein Urine Glucose (UA) Urine Ketones Urine Blood Urine Nitrite Ur Leukocyte Esterase Urine RBC Urine WBC Ur Squamous Epith Cells Urine Bacteria Hyaline Casts Urine Opiates Screen Ur Buprenorphine Scrn Ur Oxycodone Screen Urine Methadone Screen Urine Fentanyl Screen Ur Barbiturates Screen Ur Phencyclidine Scrn Ur Amphetamines Screen U Benzodiazepines Scrn Urine Cocaine Screen U Marijuana (THC) Screen Influenza Type A (PCR) Influenza Type B (PCR) RSV RNA Qual (PCR) SARS-CoV-2 RNA (RT-PCR) 03/11/24 03/11/24 03/11/24 11:11 11:34 11:35 MCV MCH MCHC RDW Plt Count MPV Immature Gran % (Auto) Neut % (Auto) Lymph % (Auto) [place] % (Auto) Eos % (Auto) Baso % (Auto) Lymph # (Auto) [place] # (Auto) Eos # (Auto) Baso # (Auto) Abs Immat Gran (auto) Absolute Neuts (auto) Absolute Nucleated RBC Nucleated RBC % (auto) Neutrophils % (Manual) Band Neutrophils % Lymphocytes % (Manual) Monocytes % (Manual) Metamyelocytes % Abs Neuts (Manual) Lymphocytes # (Manual) Monocytes # (Manual) Metamyelocytes # Nucleated RBCs Smudge Cells Dohle Bodies Platelet Estimate Plt Morphology Comment RBC Morphology Polychromasia Hypochromasia Microcytosis PT INR O2 Saturation ABG pH at Pt Temp ABG pCO2 at Pt Temp ABG pO2 at Pt Temp ABG HCO3 ABG Base Excess (Actual) Anion Gap 13 Estim Creat Clear Calc 27.1 Estimated GFR 22 POC Glucose Random Glucose 219 H Lactic Acid 1.7 Calcium 8.5 D Magnesium 2.1 Total Bilirubin 0.6 Direct Bilirubin 0.4 AST 54 H ALT 31 Alkaline Phosphatase 153 H Ammonia 31 Troponin I High Sens 444.2 H* B-Natriuretic Peptide Total Protein 5.2 L Albumin 2.5 L Lipase 13 Urine Color Urine Appearance Urine pH Ur Specific [place] Urine Protein Urine Glucose (UA) Urine Ketones Urine Blood Urine Nitrite Ur Leukocyte Esterase Urine RBC Urine WBC Ur Squamous Epith Cells Urine Bacteria Hyaline Casts Urine Opiates Screen Ur Buprenorphine Scrn Ur Oxycodone Screen Urine Methadone Screen Urine Fentanyl Screen Ur Barbiturates Screen Ur Phencyclidine Scrn Ur Amphetamines Screen U Benzodiazepines Scrn Urine Cocaine Screen U Marijuana (THC) Screen Influenza Type A (PCR) NEGATIVE Influenza Type B (PCR) NEGATIVE RSV RNA Qual (PCR) NEGATIVE SARS-CoV-2 RNA (RT-PCR) NEGATIVE 03/11/24 03/11/24 11:43 11:46 MCV MCH MCHC RDW Plt Count MPV Immature Gran % (Auto) Neut % (Auto) Lymph % (Auto) [place] % (Auto) Eos % (Auto) Baso % (Auto) Lymph # (Auto) [place] # (Auto) Eos # (Auto) Baso # (Auto) Abs Immat Gran (auto) Absolute Neuts (auto) Absolute Nucleated RBC Nucleated RBC % (auto) Neutrophils % (Manual) Band Neutrophils % Lymphocytes % (Manual) Monocytes % (Manual) Metamyelocytes % Abs Neuts (Manual) Lymphocytes # (Manual) Monocytes # (Manual) Metamyelocytes # Nucleated RBCs Smudge Cells Dohle Bodies Platelet Estimate Plt Morphology Comment RBC Morphology Polychromasia Hypochromasia Microcytosis PT INR O2 Saturation ABG pH at Pt Temp ABG pCO2 at Pt Temp ABG pO2 at Pt Temp ABG HCO3 ABG Base Excess (Actual) Anion Gap Estim Creat Clear Calc Estimated GFR POC Glucose Random Glucose Lactic Acid Calcium Magnesium Total Bilirubin Direct Bilirubin AST ALT Alkaline Phosphatase Ammonia Troponin I High Sens B-Natriuretic Peptide Total Protein Albumin Lipase Urine Color Dark Yellow Urine Appearance Clear Urine pH 5.5 Ur Specific [place] 1.015 Urine Protein 30 (1+) H Urine Glucose (UA) 500 H Urine Ketones Negative Urine Blood Negative Urine Nitrite Negative Ur Leukocyte Esterase Negative Urine RBC 0-2 Urine WBC 0-5 Ur Squamous Epith Cells 0-2 Urine Bacteria None Seen Hyaline Casts 3-5 Urine Opiates Screen POSITIVE H Ur Buprenorphine Scrn Not Detected Ur Oxycodone Screen Positive H Urine Methadone Screen Not Detected Urine Fentanyl Screen Not Detected Ur Barbiturates Screen Not Detected Ur Phencyclidine Scrn Not Detected Ur Amphetamines Screen Not Detected U Benzodiazepines Scrn Not Detected Urine Cocaine Screen Not Detected U Marijuana (THC) Screen Not Detected Influenza Type A (PCR) Influenza Type B (PCR) RSV RNA Qual (PCR) SARS-CoV-2 RNA (RT-PCR) Assessment and Plan (1) Septic shock: Status: Acute (2) Pneumonia: Status: Acute (3) Acute respiratory failure with hypoxia: Status: Acute (4) Status post bone marrow transplant: Status: Acute (5) AML (acute myeloblastic leukemia): Status: Acute Plan Assessment: 73-year-old gentleman with underlying AML status post stem cell transplant on chronic prednisone in DNR DNI status admitted with septic shock with likely pneumonic source and acute hypoxic respiratory failure Plan: Neuro: Septic encephalopathy, expect to improve with resolution of sepsis. Cardiac: Septic shock, continue to titrate off pressor support as tolerated. Pulmonary: Acute hypoxic respiratory failure secondary to pulmonary edema, continue to titrate off supplemental oxygen as tolerated. Underlying DNI code status verified with . Renal: Acute renal failure, likely secondary to shock. Non oliguric. Continue to monitor renal indices and urine output. Endo: On chronic prednisone, stress dose steroids ordered. GI: No acute issues. ID: Likely septic shock with pneumonic source. Underlying history of multiple drug-resistant organisms. Continue meropenem and vancomycin. Heme/Onc: Underlying history of AML status post stem cell transplant. Psych: No acute issues. Miscellaneous: No acute issues. Prophylaxis: Heparin Diet: NPO Critical care time spent: 60 minutes
--- NOTE | 2024-03-11 15:12 | PC.NURSE ---
Urine output of 150 mL at this time
[2024-03-11 15:13] LABS: Troponin-I High Sensitivity 453.7 ng/L (<3.5-35.0)
--- NOTE | 2024-03-11 15:42 | PC.NURSE ---
Report given to Francis JENSEN in ICU verbal
--- NOTE | 2024-03-11 15:51 | PHA.MEDREC ---
Addendum entered by Chip Muhammad [facility] 03/12/24 09:34: Reviewed by Umm Hodges 03/11/24. Original Note: Pharmacy Consult ? Medication Reconciliation Pharmacy has completed the medication reconciliation. Confirmed medications with list from [facility]. On list Albuterol Nebulization Solution has an end date of 03/13/24, Prochloperazine 5mg has an end date of 03/19/24 and Heprin Sodium Solution 5000 un/mL has an end date of 03/19/24.
[2024-03-11] MEDS: Sulfamethox/Trimeth 800/160 TABLET 1 TAB PO (18:51)
[2024-03-11] MEDS: Norepinephrine Bitartrate/D5W 8 MG/250 ML PLAST..BAG 62.21 MG IVCONT (18:51)
[2024-03-11] MEDS: Azithromycin 500 MG in 0.9 % Sodium Chloride 250 ML 125 MG IV (18:52)
[2024-03-11] MEDS: Norepinephrine Bitartrate/NS 32 MG/250 ML PLAST..BAG 15.55 MG IVCONT (20:29)
[2024-03-11] MEDS: Acyclovir Sodium 500 MG in Dextrose 5 % 100 ML 110 MG IV (21:54)
[2024-03-11 23:34] LABS: VBG Base Excess 4.4 mmol/L; VBG HCO3 32 mmol/L (22-26); VBG pCO2 70 mmHg; VBG pH 7.26 (7.32-7.43); VBG pO2 96 mmHg
[2024-03-11 23:40] LABS: Venous Blood Gas Refer to POC result
[2024-03-12] VITALS (53 sets, daily range): BP systolic 99–148; BP diastolic 28–76; PULSE 76–93; RESP 16–40; TEMP 35.9–37.2; O2SAT 87–98; BMI 29.8
[2024-03-12] MEDS: Meropenem 1 GM VIAL 2 GM IVPUSH ×2 (01:53→14:15)
--- NOTE | 2024-03-12 02:28 | PC.NURSE ---
Addendum entered by Arsalan Jimenez RN 03/12/24 06:26: AM H/H= 6.6/19/9...H/H REPEATED PER ROTO GRAVURE PRESS OPERATOR= 6.7/20.0...TYPE AND SCREEN DRAWN PER ROTO GRAVURE PRESS OPERATOR...LASIX 40MG IV X1 GIVEN...PATIENT AWAKE...INTERMITTANTLY ATTEMPTING TO PULL OFF BIPAP...PER ROTO GRAVURE PRESS OPERATOR..RT PAGED AND PATIENT RETURNED TO HI-CORIN CANNULA FIO2 85% AND 55 L/M...RR 28-32...SAO2 94% Addendum entered by Arsalan Jimenez RN 03/12/24 02:41: PREVIOUSL CORE TEMP VIA MORROW TRENDED DOWN TO 95.4...WARMING BLANKET PLACED AND SOLUCORTEF/ANTIBIOTICS PER JUL...TEMP IMPROVED TO 98.4 CORE..WARMING BLANKET PLACED ON HOLD Original Note: CARE ASSUMED 7PM..PATIENT INITIALLY AWAKE..CONFUSED BUT RESPONDED TO SIMPLE QUESTION..DRANK SMALL AMOUNT H20 WHEN PROVIDED BY ...INITIALLY HI-CORIN O2 CANNULA 100% FIO2 AND 55 L/M...SAO2 80'S...RT PRESENT AND ADDED 100% NRB PER ICU ROTO GRAVURE PRESS OPERATOR...DESPITE BOTH NRB MASK AND HI-CORIN O2 100% SAO2 83%...DROWSY TO LETHARGIC...PLACED ON BIPAP 16/8 AND FIO2 80% AND BACK UP RATE 18 BY RT PER ROTO GRAVURE PRESS OPERATOR....SAO2 IMPROVED TO 94-96%...REPEAT VBG DONE...pH 7.26/PCO2 70...FIO2 GRADUALLY WEANED TO WEANED TO 60% WITH STABLE SAO2...PAT INITIALLY LETHARGIC TO OBTUNDED...NOW AWAKE INTERMITTANTLY...DISORIENTED BUT STATES WHERE AM I? ...LEVOPHED DRIP PREVIOUSLY CHANGED TO HIGH CONCENTRATION LEVOPHED (32MG/250ML) PER ROTO GRAVURE PRESS OPERATOR...LEVOPHED WEANED FROM 0.37 TO 0.29 MCG/KG/MIN CURRENTLY...MORROW OUTPUT IMPROVED FROM 15ML TO 40ML AT PRESENT..ABDOMEN FIRM WITH HYPOACTIVE BOWEL SOUNDS..STATED NO TO NAUSEA OR PAIN...MULTIPLE BRUISES TO ARMS AND ABDOMEN...FOAM DRESSINGS TO BILATERAL BUTTOCKS..PICTURES PREVIOUSLY TAKEN BY DAY RN...LEFT LOWER LEG WRAPPED..CAST TO RIGHT LOWER LEG IN PLACE..NSR..RARE PAC
[2024-03-12 04:59] LABS: Mean Corpuscular HGB Conc 33.2 g/dl (31.0-36.0); Mean Corpuscular Hemoglobin 30.4 pg (27.0-33.0); Mean Corpuscular Volume 91.7 fL (80.0-98.0); Mean Platelet Volume 10.1 fL (9.4-12.4); Platelet Count 115 X10*3/uL (160-400); Red Blood Count 2.17 X10*6/uL (4.60-5.80); Red Cell Distribution Width 14.7 % (11.0-16.0)
[2024-03-12 05:00] LABS: Venous Blood Gas Refer to POC result
[2024-03-12 05:02] LABS: VBG Base Excess 6.5 mmol/L; VBG HCO3 33 mmol/L (22-26); VBG pCO2 63 mmHg; VBG pH 7.32 (7.32-7.43); VBG pO2 51 mmHg
[2024-03-12 05:03] LABS: NRBC Pct Auto 5.1 /100WBC (0.0-0.2); WBC ABN SCTR FOR CBC 1
[2024-03-12 05:06] LABS: Hematocrit 19.9 % (42.0-52.0); Hemoglobin 6.6 g/dl (14.0-18.0)
[2024-03-12 05:20] LABS: Alanine Aminotransferase 37 U/L (0-40); Albumin Level 3.3 g/dL (3.5-5.0); Alkaline Phosphatase 138 U/L (39-117); Anion Gap 18 (12-20); Aspartate Amino Transferase 67 U/L (5-37); Bilirubin Total 0.8 mg/dL (0.0-1.0); Blood Urea Nitrogen 51 mg/dL (9-16); Calcium 8.7 mg/dL (8.4-10.2); Carbon Dioxide 29 mmol/L (22-29); Chloride 99 mmol/L (96-108); Creatinine Clr Calc Pharmacy 28.4; Estimated Glomerular Filt Rate 23; Glucose Random 292 mg/dL (60-115); Magnesium 2.3 mg/dL (1.6-2.6); Phosphorus 3.9 mg/dL (2.7-4.5); Potassium 4.5 mmol/L (3.3-5.1); Sodium 141 mmol/L (135-145)
[2024-03-12 05:27] LABS: INTERNATIONAL NORM RATIO 1.4 (0.9-1.1); Prothrombin Time 16.7 SEC (10.9-12.4)
[2024-03-12 05:33] LABS: Hemoglobin 6.7 g/dl (14.0-18.0); Mean Corpuscular HGB Conc 33.5 g/dl (31.0-36.0); Mean Corpuscular Hemoglobin 30.7 pg (27.0-33.0); Mean Corpuscular Volume 91.7 fL (80.0-98.0); Mean Platelet Volume 9.9 fL (9.4-12.4); Platelet Count 120 X10*3/uL (160-400); Red Blood Count 2.18 X10*6/uL (4.60-5.80); Red Cell Distribution Width 14.9 % (11.0-16.0)
[2024-03-12 05:34] LABS: NRBC Pct Auto 4.2 /100WBC (0.0-0.2); WBC ABN SCTR FOR CBC 1
[2024-03-12 05:57] LABS: Band Neutrophils Percent 45 % (3-5); Lymphocytes Percent Manual 2 % (20-40); Metamyelocytes Percent 1 %; Monocytes Percent Manual 2 % (2-11); Neutrophils Percent Manual 50 % (45-73); Nucleated Red Blood Cells 10 /100WBC (0-0); RBC Morphology NOTED
[2024-03-12 05:58] LABS: Large Platelet PRESENT; Microcytosis 1+ (5-14) /OIF; Platelet Estimate SLIGHTLY DECREASED (NORMAL); Platelet Morphology Comment NORMAL; Schistocytes 1+ (0-2) /OIF; Spherocytes 1+ (0-2) /OIF; Target Cells 1+ (5-14) /OIF
[2024-03-12] MEDS: Furosemide 40 MG/4 ML VIAL IVPUSH (05:58)
[2024-03-12] MEDS: Hydrocortisone Sod Succ/PF 100 MG VIAL IVPUSH ×3 (05:58→22:28)
[2024-03-12 06:01] LABS: Dohle Bodies PRESENT; Hypochromasia 1+ (5-14) /OIF; Lymphocytes Absolute Manual 0.1 X10*3/uL (1.2-4.9); Monocytes Absolute Manual 0.1 X10*3/uL (0.1-1.2); Neutrophils Absolute Manual 3.2 X10*3/uL (2.0-8.3); Polychromasia 1+ (0-2) /OIF; Smudge Cells PRESENT; White Blood Count 3.4 X10*3/uL (4.8-10.8)
[2024-03-12 06:02] LABS: White Blood Count 3.3 X10*3/uL (4.8-10.8)
--- NOTE | 2024-03-12 09:28 | P.CDIM_ITS ---
PROVIDER RESPONSE TEXT: To clarify, the appropriate diagnosis supported by the clinical indicators: Other (explain): Chronic, unclear if systolic or diastolic, echo is pending QUERY TEXT: PHYSICIAN'S DOCUMENTATION REQUEST Date of Query: 03/12/2024 09:09 AM EDT Patient Name: TERENCE TORRES Admit Date: 03/11/2024 Dear Herrera العلي MD, A review of the medical record indicates additional documentation may be needed. Please review below and update the documentation accordingly. Clinical Indicators: Ed and H&P - Past medical history - Congestive heart failure BNP 1165 H Lasix Please provide further specificity regarding the most likely type and acuity of CHF: Systolic Please specify if Acute, Chronic, or Acute on chronic, or Unable to determine Diastolic Please specify if Acute, Chronic, or Acute on chronic, or Unable to determine Combined Systolic/Diastolic Please specify if Acute, Chronic, or Acute on chronic, or Unable to determine Other (explain) Clinically unable to determine (explain) Thank you, Kay Henning, CCS, CDIS Use of terms such as suspected, likely, concern for, or probable (associated with a specific diagnosi s that is being evaluated, monitored, or treated as if it exists) are acceptable and can be coded in the inpatient se tting, when documented at the time of discharge. Please use your independent medical judgment in providing your response. THIS QUERY IS PART OF THE PERMANENT MEDICAL RECORD
[2024-03-12] MEDS: Acyclovir 200 MG CAPSULE 400 MG PO ×2 (09:41→14:20)
[2024-03-12] MEDS: Albumin Human 25 % 100 ML IV ×3 (09:42→21:08)
--- NOTE | 2024-03-12 11:14 | P.PNCC_ITS ---
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 On ER evaluation patient in shock with poor response to initial IV fluid resuscitation requiring pressor support. Also, with significant hypoxia requiring maximum support from high-flow nasal cannula. Per family members patient with history of multiple resistant infections. Started on meropenem, vancomycin, stress dose steroids and admitted to intensive care unit. No events overnight. Critical Care Time (minutes): 60 Physical Exam 2 Vital Signs: Vital Signs: Last Vital Signs Temp 98.8 F 03/12/24 11:00 Pulse 88 03/12/24 11:00 Resp 33 H 03/12/24 11:00 BP 108/58 L 03/12/24 11:00 Pulse Ox 95 03/12/24 11:00 O2 Del Method BiPAP 03/12/24 11:00 O2 Flow Rate 55 03/12/24 10:00 FiO2 60 03/12/24 11:00 BMI result Body Mass Index 29.8 Const: General: no acute distress, confusion and lethargic Nutritional Appearance: Edematous Orientation/consciousness: confusion and lethargic Eyes: Sclerae: sclerae normal EOM: EOMs intact bilaterally Neck: Neck: Yes no lymphadenopathy, Yes trachea midline and Yes supple Resp: Effort & Inspection: tachypneic Auscultation: crackles (Bilateral) Cardio: Rate: regular rate Rhythm: regular rhythm Heart sounds: no gallops, no murmurs and no rubs GI: Palpation (GI): Soft to palpation and Other GI palpation findings present ( Nontender) Auscultation: normal bowel sounds Neuro: General: confusion Extrem: General: Yes no pedal edema, No clubbing and No cyanosis Objective Data Labs 03/12/24 05:13 03/12/24 04:53 Labs: Laboratory Results - last 24 hr 03/11/24 03/11/24 03/11/24 11:04 11:08 11:10 WBC 5.0 RBC 2.55 L Hgb 7.8 L Hct 23.0 L MCV 90.2 MCH 30.6 MCHC 33.9 RDW 14.6 Plt Count 148 L MPV 10.1 Immature Gran % (Auto) Cancelled Neut % (Auto) Cancelled Lymph % (Auto) Cancelled [place] % (Auto) Cancelled Eos % (Auto) Cancelled Baso % (Auto) Cancelled Lymph # (Auto) Cancelled [place] # (Auto) Cancelled Eos # (Auto) Cancelled Baso # (Auto) Cancelled Abs Immat Gran (auto) Cancelled Absolute Neuts (auto) Cancelled Absolute Nucleated RBC 0.310 H Nucleated RBC % (auto) 6.3 H Neutrophils % (Manual) 43 L Band Neutrophils % 45 H Lymphocytes % (Manual) 6 L Monocytes % (Manual) 4 Metamyelocytes % 2 Abs Neuts (Manual) 4.4 Lymphocytes # (Manual) 0.3 L Monocytes # (Manual) 0.2 Metamyelocytes # 0.1 Nucleated RBCs 10 H Smudge Cells PRESENT Dohle Bodies PRESENT Platelet Estimate SLIGHTLY DECREASED Large Platelets Plt Morphology Comment NORMAL RBC Morphology NOTED Polychromasia 1+ (0-2) Hypochromasia 1+ (5-14) Microcytosis 1+ (5-14) Spherocytes Target Cells Schistocytes Hold Purple Top PT 16.5 H INR 1.4 H O2 Saturation 85.0 ABG pH at Pt Temp 7.48 H ABG pCO2 at Pt Temp 50 H ABG pO2 at Pt Temp 58 L ABG HCO3 38 H ABG Base Excess (Actual) 13.6 VBG pH VBG pCO2 VBG pO2 VBG HCO3 VBG O2 Saturation VBG Base Excess Sodium Potassium Chloride Carbon Dioxide Anion Gap BUN Creatinine Estim Creat Clear Calc Estimated GFR POC Glucose 202 H Random Glucose Lactic Acid Calcium Phosphorus Magnesium Total Bilirubin Direct Bilirubin AST ALT Alkaline Phosphatase Ammonia Troponin I High Sens B-Natriuretic Peptide 1165 H Total Protein Albumin Lipase Urine Color Urine Appearance Urine pH Ur Specific [place] Urine Protein Urine Glucose (UA) Urine Ketones Urine Blood Urine Nitrite Ur Leukocyte Esterase Urine RBC Urine WBC Ur Squamous Epith Cells Urine Bacteria Hyaline Casts Urine Opiates Screen Ur Buprenorphine Scrn Ur Oxycodone Screen Urine Methadone Screen Urine Fentanyl Screen Ur Barbiturates Screen Ur Phencyclidine Scrn Ur Amphetamines Screen U Benzodiazepines Scrn Urine Cocaine Screen U Marijuana (THC) Screen Influenza Type A (PCR) Influenza Type B (PCR) RSV RNA Qual (PCR) SARS-CoV-2 RNA (RT-PCR) Blood Type Antibody Screen Crossmatch 03/11/24 03/11/24 03/11/24 11:11 11:34 11:35 WBC RBC Hgb Hct MCV MCH MCHC RDW Plt Count MPV Immature Gran % (Auto) Neut % (Auto) Lymph % (Auto) [place] % (Auto) Eos % (Auto) Baso % (Auto) Lymph # (Auto) [place] # (Auto) Eos # (Auto) Baso # (Auto) Abs Immat Gran (auto) Absolute Neuts (auto) Absolute Nucleated RBC Nucleated RBC % (auto) Neutrophils % (Manual) Band Neutrophils % Lymphocytes % (Manual) Monocytes % (Manual) Metamyelocytes % Abs Neuts (Manual) Lymphocytes # (Manual) Monocytes # (Manual) Metamyelocytes # Nucleated RBCs Smudge Cells Dohle Bodies Platelet Estimate Large Platelets Plt Morphology Comment RBC Morphology Polychromasia Hypochromasia Microcytosis Spherocytes Target Cells Schistocytes Hold Purple Top PT INR O2 Saturation ABG pH at Pt Temp ABG pCO2 at Pt Temp ABG pO2 at Pt Temp ABG HCO3 ABG Base Excess (Actual) VBG pH VBG pCO2 VBG pO2 VBG HCO3 VBG O2 Saturation VBG Base Excess Sodium 138 Potassium 4.7 Chloride 95 L Carbon Dioxide 35 H Anion Gap 13 BUN 48 H Creatinine 2.81 H Estim Creat Clear Calc 27.1 Estimated GFR 22 POC Glucose Random Glucose 219 H Lactic Acid 1.7 Calcium 8.5 D Phosphorus Magnesium 2.1 Total Bilirubin 0.6 Direct Bilirubin 0.4 AST 54 H ALT 31 Alkaline Phosphatase 153 H Ammonia 31 Troponin I High Sens 444.2 H* B-Natriuretic Peptide Total Protein 5.2 L Albumin 2.5 L Lipase 13 Urine Color Urine Appearance Urine pH Ur Specific [place] Urine Protein Urine Glucose (UA) Urine Ketones Urine Blood Urine Nitrite Ur Leukocyte Esterase Urine RBC Urine WBC Ur Squamous Epith Cells Urine Bacteria Hyaline Casts Urine Opiates Screen Ur Buprenorphine Scrn Ur Oxycodone Screen Urine Methadone Screen Urine Fentanyl Screen Ur Barbiturates Screen Ur Phencyclidine Scrn Ur Amphetamines Screen U Benzodiazepines Scrn Urine Cocaine Screen U Marijuana (THC) Screen Influenza Type A (PCR) NEGATIVE Influenza Type B (PCR) NEGATIVE RSV RNA Qual (PCR) NEGATIVE SARS-CoV-2 RNA (RT-PCR) NEGATIVE Blood Type Antibody Screen Crossmatch 03/11/24 03/11/24 03/11/24 11:43 11:46 14:29 WBC RBC Hgb Hct MCV MCH MCHC RDW Plt Count MPV Immature Gran % (Auto) Neut % (Auto) Lymph % (Auto) [place] % (Auto) Eos % (Auto) Baso % (Auto) Lymph # (Auto) [place] # (Auto) Eos # (Auto) Baso # (Auto) Abs Immat Gran (auto) Absolute Neuts (auto) Absolute Nucleated RBC Nucleated RBC % (auto) Neutrophils % (Manual) Band Neutrophils % Lymphocytes % (Manual) Monocytes % (Manual) Metamyelocytes % Abs Neuts (Manual) Lymphocytes # (Manual) Monocytes # (Manual) Metamyelocytes # Nucleated RBCs Smudge Cells Dohle Bodies Platelet Estimate Large Platelets Plt Morphology Comment RBC Morphology Polychromasia Hypochromasia Microcytosis Spherocytes Target Cells Schistocytes Hold Purple Top PT INR O2 Saturation ABG pH at Pt Temp ABG pCO2 at Pt Temp ABG pO2 at Pt Temp ABG HCO3 ABG Base Excess (Actual) VBG pH VBG pCO2 VBG pO2 VBG HCO3 VBG O2 Saturation VBG Base Excess Sodium Potassium Chloride Carbon Dioxide Anion Gap BUN Creatinine Estim Creat Clear Calc Estimated GFR POC Glucose Random Glucose Lactic Acid Calcium Phosphorus Magnesium Total Bilirubin Direct Bilirubin AST ALT Alkaline Phosphatase Ammonia Troponin I High Sens 453.7 H* B-Natriuretic Peptide Total Protein Albumin Lipase Urine Color Dark Yellow Urine Appearance Clear Urine pH 5.5 Ur Specific [place] 1.015 Urine Protein 30 (1+) H Urine Glucose (UA) 500 H Urine Ketones Negative Urine Blood Negative Urine Nitrite Negative Ur Leukocyte Esterase Negative Urine RBC 0-2 Urine WBC 0-5 Ur Squamous Epith Cells 0-2 Urine Bacteria None Seen Hyaline Casts 3-5 Urine Opiates Screen POSITIVE H Ur Buprenorphine Scrn Not Detected Ur Oxycodone Screen Positive H Urine Methadone Screen Not Detected Urine Fentanyl Screen Not Detected Ur Barbiturates Screen Not Detected Ur Phencyclidine Scrn Not Detected Ur Amphetamines Screen Not Detected U Benzodiazepines Scrn Not Detected Urine Cocaine Screen Not Detected U Marijuana (THC) Screen Not Detected Influenza Type A (PCR) Influenza Type B (PCR) RSV RNA Qual (PCR) SARS-CoV-2 RNA (RT-PCR) Blood Type Antibody Screen Crossmatch 03/11/24 03/12/2424 23:29 04:53 04:58 WBC 3.4 L RBC 2.17 L Hgb 6.6 L* Hct 19.9 L* MCV 91.7 MCH 30.4 MCHC 33.2 RDW 14.7 Plt Count 115 L MPV 10.1 Immature Gran % (Auto) Cancelled Neut % (Auto) Cancelled Lymph % (Auto) Cancelled [place] % (Auto) Cancelled Eos % (Auto) Cancelled Baso % (Auto) Cancelled Lymph # (Auto) Cancelled [place] # (Auto) Cancelled Eos # (Auto) Cancelled Baso # (Auto) Cancelled Abs Immat Gran (auto) Cancelled Absolute Neuts (auto) Cancelled Absolute Nucleated RBC 0.170 H Nucleated RBC % (auto) 5.1 H Neutrophils % (Manual) 50 Band Neutrophils % 45 H Lymphocytes % (Manual) 2 L Monocytes % (Manual) 2 Metamyelocytes % 1 Abs Neuts (Manual) 3.2 Lymphocytes # (Manual) 0.1 L Monocytes # (Manual) 0.1 Metamyelocytes # Nucleated RBCs 10 H Smudge Cells PRESENT Dohle Bodies PRESENT Platelet Estimate SLIGHTLY DECREASED Large Platelets PRESENT Plt Morphology Comment NORMAL RBC Morphology NOTED Polychromasia 1+ (0-2) Hypochromasia 1+ (5-14) Microcytosis 1+ (5-14) Spherocytes 1+ (0-2) Target Cells 1+ (5-14) Schistocytes 1+ (0-2) Hold Purple Top PT INR O2 Saturation ABG pH at Pt Temp ABG pCO2 at Pt Temp ABG pO2 at Pt Temp ABG HCO3 ABG Base Excess (Actual) VBG pH 7.26 L 7.32 VBG pCO2 70 63 VBG pO2 96 51 VBG HCO3 32 H 33 H VBG O2 Saturation 98.0 79.0 VBG Base Excess 4.4 6.5 Sodium 141 Potassium 4.5 Chloride 99 Carbon Dioxide 29 Anion Gap 18 BUN 51 H Creatinine 2.70 H Estim Creat Clear Calc 28.4 Estimated GFR 23 POC Glucose Random Glucose 292 H Lactic Acid Calcium 8.7 Phosphorus 3.9 Magnesium 2.3 Total Bilirubin 0.8 Direct Bilirubin AST 67 H ALT 37 Alkaline Phosphatase 138 H Ammonia Troponin I High Sens B-Natriuretic Peptide Total Protein 6.0 L Albumin 3.3 L Lipase Urine Color Urine Appearance Urine pH Ur Specific [place] Urine Protein Urine Glucose (UA) Urine Ketones Urine Blood Urine Nitrite Ur Leukocyte Esterase Urine RBC Urine WBC Ur Squamous Epith Cells Urine Bacteria Hyaline Casts Urine Opiates Screen Ur Buprenorphine Scrn Ur Oxycodone Screen Urine Methadone Screen Urine Fentanyl Screen Ur Barbiturates Screen Ur Phencyclidine Scrn Ur Amphetamines Screen U Benzodiazepines Scrn Urine Cocaine Screen U Marijuana (THC) Screen Influenza Type A (PCR) Influenza Type B (PCR) RSV RNA Qual (PCR) SARS-CoV-2 RNA (RT-PCR) Blood Type Antibody Screen Crossmatch 03/12/24 05:13 WBC 3.3 L RBC 2.18 L Hgb 6.7 L* Hct 20.0 L* MCV 91.7 MCH 30.7 MCHC 33.5 RDW 14.9 Plt Count 120 L MPV 9.9 Immature Gran % (Auto) Neut % (Auto) Lymph % (Auto) [place] % (Auto) Eos % (Auto) Baso % (Auto) Lymph # (Auto) [place] # (Auto) Eos # (Auto) Baso # (Auto) Abs Immat Gran (auto) Absolute Neuts (auto) Absolute Nucleated RBC 0.140 H Nucleated RBC % (auto) 4.2 H Neutrophils % (Manual) Band Neutrophils % Lymphocytes % (Manual) Monocytes % (Manual) Metamyelocytes % Abs Neuts (Manual) Lymphocytes # (Manual) Monocytes # (Manual) Metamyelocytes # Nucleated RBCs Smudge Cells Dohle Bodies Platelet Estimate Large Platelets Plt Morphology Comment RBC Morphology Polychromasia Hypochromasia Microcytosis Spherocytes Target Cells Schistocytes Hold Purple Top Cancelled PT 16.7 H INR 1.4 H O2 Saturation ABG pH at Pt Temp ABG pCO2 at Pt Temp ABG pO2 at Pt Temp ABG HCO3 ABG Base Excess (Actual) VBG pH VBG pCO2 VBG pO2 VBG HCO3 VBG O2 Saturation VBG Base Excess Sodium Potassium Chloride Carbon Dioxide Anion Gap BUN Creatinine Estim Creat Clear Calc Estimated GFR POC Glucose Random Glucose Lactic Acid Calcium Phosphorus Magnesium Total Bilirubin Direct Bilirubin AST ALT Alkaline Phosphatase Ammonia Troponin I High Sens B-Natriuretic Peptide Total Protein Albumin Lipase Urine Color Urine Appearance Urine pH Ur Specific [place] Urine Protein Urine Glucose (UA) Urine Ketones Urine Blood Urine Nitrite Ur Leukocyte Esterase Urine RBC Urine WBC Ur Squamous Epith Cells Urine Bacteria Hyaline Casts Urine Opiates Screen Ur Buprenorphine Scrn Ur Oxycodone Screen Urine Methadone Screen Urine Fentanyl Screen Ur Barbiturates Screen Ur Phencyclidine Scrn Ur Amphetamines Screen U Benzodiazepines Scrn Urine Cocaine Screen U Marijuana (THC) Screen Influenza Type A (PCR) Influenza Type B (PCR) RSV RNA Qual (PCR) SARS-CoV-2 RNA (RT-PCR) Blood Type A Positive Antibody Screen NEGATIVE Crossmatch See Detail Progress Note: A&P Assessment and plan (1) GVHD (graft versus host disease): Status: Acute (2) AML (acute myeloblastic leukemia): Status: Acute (3) Status post bone marrow transplant: Status: Acute (4) Acute respiratory failure with hypoxia: Status: Acute (5) Pneumonia: Status: Acute (6) Septic shock: Status: Acute (7) Acute renal failure: Status: Acute Plan Assessment: 73-year-old gentleman with underlying AML status post stem cell transplant on chronic prednisone in DNR DNI status admitted with septic shock with likely pneumonic source and acute hypoxic respiratory failure Plan: Neuro: Septic encephalopathy, expect to improve with resolution of sepsis. Cardiac: Septic shock, continue to titrate off pressor support as tolerated. Pulmonary: Acute hypoxic respiratory failure secondary to pulmonary edema, continue to titrate off supplemental oxygen as tolerated. Underlying DNI code status verified with . Renal: Acute renal failure, likely secondary to shock. Non oliguric. Continue to monitor renal indices and urine output. Endo: On chronic prednisone, stress dose steroids ordered. GI: No acute issues. ID: Likely septic shock with pneumonic source. Underlying history of multiple drug-resistant organisms. Continue meropenem and vancomycin. Continue Bactrim/acyclovir/Cresemba prophylaxis. Heme/Onc: Underlying history of AML status post bone marrow stem cell transplant complicated by [id number] disease. Continue GVHD medications. Psych: No acute issues. Miscellaneous: No acute issues. Prophylaxis: Heparin Diet: NPO Critical care time spent: 60 minutes Quality Stroke Does the patient have a stroke diagnosis?: No VTE Prior VTE?: No VTE Risk Level:: Medical - moderate - high VTE Device Contraindication: Treatment Not Indicated VTE Drug Contraindication: N/A - Med Ordered
--- NOTE | 2024-03-12 13:00 | CA_ITS ---
Transthoracic Echocardiogram Patient (Last, First, Middle): Yaniv Medeiros, Gender: Male Date of : 1950 Age: 73 Procedure Date: 03/12/2024 Procedure Type: Transthoracic Echocardiogram Location: ICU Height: 182.88 cm Weight: 96.62 kg BSA: 2.19 m2 Heart Rate: bpm BP: 128 / 66 mmHg Web Production Assistant: Referring MD: Herrera العلي MD Symptoms: dyspnea Study Quality: Fair ECG Rhythm: Sinus Conclusions: - Normal left ventricular cavity size. There is mildly increased left ventricular wall thickness. The left ventricular systolic function is hyperdynamic. The visually estimated ejection fraction is >70%. - Moderately increased right ventricular cavity size. There is mild to moderately decreased right ventricular systolic function. The right ventricular free wall is akinetic. - Moderate pulmonary hypertension is present. - The inferior vena cava is dilated and collapses less than 50% with inspiration. Findings Left Ventricle Normal left ventricular cavity size. There is mildly increased left ventricular wall thickness. The left ventricular systolic function is hyperdynamic. The visually estimated ejection fraction is >70%. There is no evidence of regional wall motion abnormalities. Abnormal diastolic function is noted. Spectral Doppler is indicative of an impaired relaxation filling pattern. E/E prime ratio is between 8 and 15 consistent with indeterminate filling pressures. Right Ventricle Moderately increased right ventricular cavity size. There is mild to moderately decreased right ventricular systolic function. The right ventricular free wall is akinetic. Aortic Valve Normal aortic valve structure and function. There is no aortic valve stenosis. There is no aortic valve regurgitation. Mitral Valve The mitral valve appears normal. There is no mitral valve regurgitation. There is no mitral valve stenosis. Pulmonic Valve The pulmonic valve is normal. There is trace pulmonic valve regurgitation. Tricuspid Valve Normal tricuspid valve structure. There is trace tricuspid valve regurgitation. The right ventricular systolic pressure is 53 mmHg. Moderately elevated right atrial pressure. Moderate pulmonary hypertension is present. Great Vessels All visible segments of the aorta are normal in size. Venous The inferior vena cava is dilated and collapses less than 50% with inspiration. Pericardium/Pleural There is no evidence of pericardial effusion. Prior Study Comparison No prior study available for comparison. Measurements 2D Linear Measurements IVSd: 1.30 0.6-0.9/0.6-1.0 cm LVIDd: 4.40 3.9-5.3/4.2-5.9 cm LVIDd Index: 2.01 2.4-3.2/2.2-3.1 cm/m2 LVIDs: 3.38 2.0-3.6 cm LVPWd: 1.33 0.7-1.1 cm Ao Root: 3.80 2.1-3.5 cm LA Diam: 3.70 2.7-3.8/3.0-4.0 cm LAIDs Index: 1.69 1.5-2.3 cm/m2 LV Mass: 272.73 67-162/88-224 g LV Mass Index: 124.54 43-95/49-115 g/m2 LVOT Diam: 2.40 3.0+(-)1.3 cm Mitral Valve MV Pk E: 0.57 MV PK A: 0.72 MV Decel Time: 165.00 E/A: 0.80 E'Lateral: 7.62 E'Medial: 5.00 E/E' Med: 11.40 E/E' Lat: 7.50 PHT: 48.00 MVA PHT: 4.58 Decel [place]: 3.45 Aortic Valve AoV Pk Jesús: 1.00 AoV Mn Jesús: 0.66 AoV VTI: 0.21 AoV Pk Grad: 4.00 Aov Mn Grad: 2.00 LANDON Cont.VTI: 3.02 LVOT LVOT Pk Jesús: 0.52 LVOT Mn Jesús: 0.36 LVOT VTI: 0.14 LVOT Pk Grad: 1.00 LVOT Mn Grad: 1.00 LVOT Diam: 2.40 LVOT Area: 4.52 Diastolic Function MV Pk E: 0.57 MV Pk A: 0.72 E/A: 0.80 E'Medial: 5.00 E/E' Med: 11.40 E' Laterial: 7.62 E/E' Lat: 7.50 Right Ventricle TAPSE (mm): 23.00 Tricuspid Valve TR Pk Jesús: 3.54 TR Pk Grad: 50.00 RA Press: 3.00 RVSP: 53.00 Great Vessels Aorta Ao Root-2D: 3.80 2.0-3.7 cm Ao Asc: 3.30 2.1-3.4 cm Pulmonary Valve PV Pk Jesús: 0.83 Peak PV Grad: 3.00 Updated in Other Vendor System with Status of Final Arie Chapman MD electronically signed on 03/12/2024 3:41:29 PM with status of Final
--- NOTE | 2024-03-12 14:55 | MHC.CM.PN ---
Met with pt and spouse to review d/c needs: Pt had been at [facility] for STR however, his spouse Jaja states he will not return. She states the facility is very staffing challenged and pt's complex medical needs were not being met. She is receptive to broad referrals. Pt requires max assist for all ADLs and is a pankaj transfer d/t wounds on BLE from graft vs host syndrome. Broad referrals placed, HCP copy requested, IMM given. BLS transport will be needed. CM to follow
[2024-03-12] MEDS: Azithromycin 500 MG in 0.9 % Sodium Chloride 250 ML 125 MG IV (16:12)
[2024-03-12] MEDS: Sulfamethox/Trimeth 400/80 TABLET 1 TAB PO (17:48)
--- NOTE | 2024-03-12 18:33 | HO.SKINPHOTO ---
Location: Left Leg Location: Right Leg Location: Bilat Buttocks
[2024-03-12 19:11] LABS: Hematocrit 23.6 % (42.0-52.0); Hemoglobin 7.8 g/dl (14.0-18.0); Mean Corpuscular HGB Conc 33.1 g/dl (31.0-36.0); Mean Corpuscular Hemoglobin 29.8 pg (27.0-33.0); Mean Corpuscular Volume 90.1 fL (80.0-98.0); Mean Platelet Volume 9.9 fL (9.4-12.4); Red Blood Count 2.62 X10*6/uL (4.60-5.80); Red Cell Distribution Width 14.9 % (11.0-16.0)
[2024-03-12 19:28] LABS: Anion Gap 16 (12-20); Blood Urea Nitrogen 51 mg/dL (9-16); Calcium 9.1 mg/dL (8.4-10.2); Carbon Dioxide 31 mmol/L (22-29); Chloride 101 mmol/L (96-108); Creatinine Clr Calc Pharmacy 31.4; Estimated Glomerular Filt Rate 26; Glucose Random 249 mg/dL (60-115); Magnesium 2.4 mg/dL (1.6-2.6); Phosphorus 4.3 mg/dL (2.7-4.5); Potassium 4.3 mmol/L (3.3-5.1); Sodium 144 mmol/L (135-145)
[2024-03-12 19:34] LABS: NRBC Pct Auto 5.5 /100WBC (0.0-0.2); Platelet Count 93 X10*3/uL (160-400)
[2024-03-12] MEDS: Norepinephrine Bitartrate/NS 32 MG/250 ML PLAST..BAG IVCONT (21:03)
[2024-03-12 21:13] LABS: D Dimer High Sensitivity 880 NG/ML
[2024-03-12] MEDS: RUXOLITINIB 5 MG 5 EACH PO (21:22)
[2024-03-12] MEDS: [UNRECOGNIZED DRUG - OTHER] 200 EACH PO (21:24)
[2024-03-12] MEDS: Heparin Sodium,Porcine/1/2NS 25,000 UNIT/250 ML IV.SOLN 10 UNIT IVCONT (21:40)
[2024-03-12 21:46] LABS: PTT Heparin Drip 33.9 SEC (53-77.9)
--- NOTE | 2024-03-12 22:17 | PC.NURSE ---
pt moved from bipap to HFNC to take night time PO medications, pt able to take small sips of water was given two tablets one by one in applesauce, pt able to swallow but then stated he was unable to take anymore pills, pt states he needs air, can not breath, RT to bedside, CIRCULAR [employer] HELPER made aware pt unable to take the rest of PO medications at this time.
[2024-03-12 22:28] LABS: D Dimer High Sensitivity 770 NG/ML
[2024-03-13] VITALS (42 sets, daily range): BP systolic 74–157; BP diastolic 39–94; PULSE 69–92; RESP 18–45; TEMP 35.8–37; O2SAT 89–98; BMI 29.7
[2024-03-13] MEDS: Meropenem 1 GM VIAL 2 GM IVPUSH ×2 (02:46→15:02)
[2024-03-13] MEDS: Albumin Human 25 % 100 ML IV (02:47)
[2024-03-13 03:46] LABS: PTT Heparin Drip 88.3 SEC (53-77.9)
[2024-03-13] MEDS: Furosemide 40 MG/4 ML VIAL IVPUSH ×2 (04:30→17:28)
[2024-03-13 04:48] LABS: VBG Base Excess 7.4 mmol/L; VBG HCO3 35 mmol/L (22-26); VBG pCO2 72 mmHg; VBG pH 7.29 (7.32-7.43); VBG pO2 44 mmHg
[2024-03-13 05:02] LABS: Hemoglobin 7.3 g/dl (14.0-18.0); INTERNATIONAL NORM RATIO 1.7 (0.9-1.1); Mean Corpuscular HGB Conc 33.2 g/dl (31.0-36.0); Mean Corpuscular Hemoglobin 29.8 pg (27.0-33.0); Mean Corpuscular Volume 89.8 fL (80.0-98.0); Mean Platelet Volume 10.8 fL (9.4-12.4); NRBC Pct Auto 6.9 /100WBC (0.0-0.2); Platelet Count 90 X10*3/uL (160-400); Prothrombin Time 19.4 SEC (10.9-12.4); Red Blood Count 2.45 X10*6/uL (4.60-5.80); Red Cell Distribution Width 15.4 % (11.0-16.0); WBC ABN SCTR FOR CBC 1; White Blood Count 5.8 X10*3/uL (4.8-10.8)
[2024-03-13 05:22] LABS: Alanine Aminotransferase 48 U/L (0-40); Albumin Level 4.4 g/dL (3.5-5.0); Alkaline Phosphatase 188 U/L (39-117); Anion Gap 17 (12-20); Aspartate Amino Transferase 93 U/L (5-37); Bilirubin Total 1.6 mg/dL (0.0-1.0); Blood Urea Nitrogen 54 mg/dL (9-16); Calcium 9.5 mg/dL (8.4-10.2); Carbon Dioxide 32 mmol/L (22-29); Chloride 101 mmol/L (96-108); Creatinine Clr Calc Pharmacy 33.7; Estimated Glomerular Filt Rate 28; Glucose Random 214 mg/dL (60-115); Magnesium 2.3 mg/dL (1.6-2.6); Phosphorus 3.7 mg/dL (2.7-4.5); Potassium 4.2 mmol/L (3.3-5.1); Sodium 146 mmol/L (135-145); Total Protein 6.7 g/dL (6.5-8.0)
[2024-03-13 05:42] LABS: Band Neutrophils Percent 35 % (3-5); Lymphocytes Absolute Manual 0.5 X10*3/uL (1.2-4.9); Lymphocytes Percent Manual 9 % (20-40); Metamyelocytes Absolute 0.1 X10*3/uL; Metamyelocytes Percent 2 %; Monocytes Absolute Manual 0.2 X10*3/uL (0.1-1.2); Monocytes Percent Manual 3 % (2-11); Neutrophils Percent Manual 51 % (45-73); Nucleated Red Blood Cells 12 /100WBC (0-0)
[2024-03-13 05:43] LABS: Macrocytosis 1+ (5-14) /OIF; Microcytosis 1+ (5-14) /OIF; Platelet Estimate SLIGHTLY DECREASED (NORMAL); Platelet Morphology Comment NORMAL; Polychromasia 1+ (0-2) /OIF; RBC Morphology NOTED; Schistocytes 1+ (0-2) /OIF; Spherocytes 1+ (0-2) /OIF; Target Cells 1+ (5-14) /OIF
[2024-03-13 05:44] LABS: Smudge Cells PRESENT
[2024-03-13] MEDS: Hydrocortisone Sod Succ/PF 100 MG VIAL IVPUSH (05:55)
--- NOTE | 2024-03-13 09:55 | P.PNCC_ITS ---
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 On ER evaluation patient in shock with poor response to initial IV fluid resuscitation requiring pressor support. Also, with significant hypoxia requiring maximum support from high-flow nasal cannula. Per family members patient with history of multiple resistant infections. Started on meropenem, vancomycin, stress dose steroids and admitted to intensive care unit. 1/2 blood cultures with Gram-negative rods on stain. No events overnight. Critical Care Time (minutes): 60 Physical Exam 2 Vital Signs: Vital Signs: Last Vital Signs Temp 97.5 F 03/13/24 09:00 Pulse 80 03/13/24 09:27 Resp 20 03/13/24 09:00 BP 125/65 03/13/24 09:27 Pulse Ox 95 03/13/24 09:00 O2 Del Method BiPAP 03/13/24 09:00 O2 Flow Rate 55 03/13/24 02:00 FiO2 90 03/13/24 09:00 BMI result Body Mass Index 29.7 Const: General: no acute distress, confusion and lethargic O rientation/consciousness: confusion and lethargic Eyes: Sclerae: sclerae normal EOM: EOMs intact bilaterally Neck: Neck: Yes no lymphadenopathy, Yes trachea midline and Yes supple Resp: Effort & Inspection: normal respiratory effort and no respiratory distress Auscultation: clear to auscultation bilaterally Cardio: Rate: regular rate Rhythm: regular rhythm Heart sounds: no gallops, no murmurs and no rubs GI: Palpation (GI): Soft to palpation and Other GI palpation findings present ( Nontender) Auscultation: normal bowel sounds Neuro: General: confusion Extrem: General: Yes no pedal edema (1 1+ bilateral), No clubbing and No cyanosis Objective Data Labs 03/13/24 04:37 03/13/24 04:37 Labs: Laboratory Results - last 24 hr 03/12/24 03/12/24 03/12/24 05:13 19:06 19:07 WBC 6.0 RBC 2.62 L D Hgb 7.8 L Hct 23.6 L MCV 90.1 MCH 29.8 MCHC 33.1 RDW 14.9 Plt Count 93 L MPV 9.9 Immature Gran % (Auto) Neut % (Auto) Lymph % (Auto) [place] % (Auto) Eos % (Auto) Baso % (Auto) Lymph # (Auto) [place] # (Auto) Eos # (Auto) Baso # (Auto) Abs Immat Gran (auto) Absolute Neuts (auto) Absolute Nucleated RBC 0.330 H Nucleated RBC % (auto) 5.5 H Neutrophils % (Manual) Band Neutrophils % Lymphocytes % (Manual) Monocytes % (Manual) Metamyelocytes % Abs Neuts (Manual) Lymphocytes # (Manual) Monocytes # (Manual) Metamyelocytes # Nucleated RBCs Smudge Cells Platelet Estimate Plt Morphology Comment RBC Morphology Polychromasia Microcytosis Macrocytosis Spherocytes Target Cells Schistocytes PT INR aPTT Heparin Protocol D-Dimer High Sensitivty 770 VBG pH VBG pCO2 VBG pO2 VBG HCO3 VBG O2 Saturation VBG Base Excess Sodium 144 Potassium 4.3 Chloride 101 Carbon Dioxide 31 H Anion Gap 16 BUN 51 H Creatinine 2.45 H Estim Creat Clear Calc 31.4 Estimated GFR 26 Random Glucose 249 H Calcium 9.1 Phosphorus 4.3 Magnesium 2.4 Total Bilirubin AST ALT Alkaline Phosphatase Total Protein Albumin Blood Type A Positive Antibody Screen NEGATIVE Crossmatch See Detail 03/12/24 03/12/24 03/13/24 20:03 21:32 03:26 WBC RBC Hgb Hct MCV MCH MCHC RDW Plt Count MPV Immature Gran % (Auto) Neut % (Auto) Lymph % (Auto) [place] % (Auto) Eos % (Auto) Baso % (Auto) Lymph # (Auto) [place] # (Auto) Eos # (Auto) Baso # (Auto) Abs Immat Gran (auto) Absolute Neuts (auto) Absolute Nucleated RBC Nucleated RBC % (auto) Neutrophils % (Manual) Band Neutrophils % Lymphocytes % (Manual) Monocytes % (Manual) Metamyelocytes % Abs Neuts (Manual) Lymphocytes # (Manual) Monocytes # (Manual) Metamyelocytes # Nucleated RBCs Smudge Cells Platelet Estimate Plt Morphology Comment RBC Morphology Polychromasia Microcytosis Macrocytosis Spherocytes Target Cells Schistocytes PT INR aPTT Heparin Protocol 33.9 L 88.3 H D D-Dimer High Sensitivty 880 VBG pH VBG pCO2 VBG pO2 VBG HCO3 VBG O2 Saturation VBG Base Excess Sodium Potassium Chloride Carbon Dioxide Anion Gap BUN Creatinine Estim Creat Clear Calc Estimated GFR Random Glucose Calcium Phosphorus Magnesium Total Bilirubin AST ALT Alkaline Phosphatase Total Protein Albumin Blood Type Antibody Screen Crossmatch 03/13/24 03/13/24 04:36 04:37 WBC 5.8 RBC 2.45 L Hgb 7.3 L Hct 22.0 L MCV 89.8 MCH 29.8 MCHC 33.2 RDW 15.4 Plt Count 90 L MPV 10.8 Immature Gran % (Auto) Cancelled Neut % (Auto) Cancelled Lymph % (Auto) Cancelled [place] % (Auto) Cancelled Eos % (Auto) Cancelled Baso % (Auto) Cancelled Lymph # (Auto) Cancelled [place] # (Auto) Cancelled Eos # (Auto) Cancelled Baso # (Auto) Cancelled Abs Immat Gran (auto) Cancelled Absolute Neuts (auto) Cancelled Absolute Nucleated RBC 0.400 H Nucleated RBC % (auto) 6.9 H Neutrophils % (Manual) 51 Band Neutrophils % 35 H Lymphocytes % (Manual) 9 L Monocytes % (Manual) 3 Metamyelocytes % 2 Abs Neuts (Manual) 5.0 Lymphocytes # (Manual) 0.5 L Monocytes # (Manual) 0.2 Metamyelocytes # 0.1 Nucleated RBCs 12 H Smudge Cells PRESENT Platelet Estimate SLIGHTLY DECREASED Plt Morphology Comment NORMAL RBC Morphology NOTED Polychromasia 1+ (0-2) Microcytosis 1+ (5-14) Macrocytosis 1+ (5-14) Spherocytes 1+ (0-2) Target Cells 1+ (5-14) Schistocytes 1+ (0-2) PT 19.4 H INR 1.7 H aPTT Heparin Protocol D-Dimer High Sensitivty VBG pH 7.29 L VBG pCO2 72 VBG pO2 44 VBG HCO3 35 H VBG O2 Saturation 68.0 VBG Base Excess 7.4 Sodium 146 H Potassium 4.2 Chloride 101 Carbon Dioxide 32 H Anion Gap 17 BUN 54 H Creatinine 2.28 H Estim Creat Clear Calc 33.7 Estimated GFR 28 Random Glucose 214 H Calcium 9.5 Phosphorus 3.7 Magnesium 2.3 Total Bilirubin 1.6 H AST 93 H ALT 48 H Alkaline Phosphatase 188 H Total Protein 6.7 Albumin 4.4 Blood Type Antibody Screen Crossmatch Microbiology Microbiology Results: Microbiology 03/11/24 11:10 Blood - Venous Blood Culture - Preliminary Prelim: GNR Gram Stain only 03/11/24 11:10 Blood - Venous Blood Culture - Preliminary No growth after 24 hours. Progress Note: A&P Assessment and plan (1) Acute renal failure: Status: Acute (2) GVHD (graft versus host disease): Status: Acute (3) AML (acute myeloblastic leukemia): Status: Acute (4) Status post bone marrow transplant: Status: Acute (5) Acute respiratory failure with hypoxia: Status: Acute (6) Septic shock: Status: Acute (7) Pneumonia: Status: Acute Plan Assessment: 73-year-old gentleman with underlying AML status post stem cell transplant on chronic prednisone in DNR DNI status admitted with septic shock with likely pneumonic source and acute hypoxic respiratory failure Plan: Neuro: Septic encephalopathy, expect to improve with resolution of sepsis. Cardiac: Septic shock, continue to titrate off pressor support as tolerated, improving. Pulmonary: Acute hypoxic respiratory failure secondary to pulmonary edema, continue to titrate off supplemental oxygen as tolerated. Underlying DNI code status verified with . Renal: Acute renal failure, likely secondary to shock. Non oliguric. Continue to monitor renal indices and urine output. Endo: On chronic prednisone, initially on stress dose steroids, now titrated down to IV Solu-Medrol. GI: No acute issues. ID: Likely septic shock with pneumonic source. Underlying history of multiple drug-resistant organisms. Continue meropenem and vancomycin. Continue Bactrim/acyclovir/Cresemba prophylaxis. Heme/Onc: Underlying history of AML status post bone marrow stem cell transplant complicated by [id number] disease. Continue GVHD medications. Psych: No acute issues. Miscellaneous: No acute issues. Prophylaxis: Heparin Diet: TPN Critical care time spent: 60 minutes Quality Stroke Does the patient have a stroke diagnosis?: No VTE Prior VTE?: No VTE Risk Level:: Medical - moderate - high VTE Device Contraindication: Treatment Not Indicated VTE Drug Contraindication: N/A - Med Ordered
[2024-03-13 10:09] LABS: Triglycerides 71 mg/dL (<150)
--- NOTE | 2024-03-13 10:33 | MHC.CLN ---
RE: CONSULT CONSULT FOR PPN REVIEWED LABS DISCUSSED WITH PHARMACY RECOMMEND PPN TO START AT 60ML/HR TO PROVIDE 734KCALS, 144G DEXTROSE, 61G PROTEIN REPLETE LYTES NEEDED TOMORROW 03/14 RECOMMEND INCREASING PPN TO 80ML/HR TO PROVIDE 979KCALS, 192G DEXTROSE, 82G PROTEIN FULL NUTRITION ASSESSMENT TO FOLLOW
[2024-03-13] MEDS: methylPREDNISolone Sod Succ 40 MG/ML VIAL 50 MG IVPUSH (11:41)
[2024-03-13] MEDS: Heparin Sodium,Porcine 5,000 UNIT/ML VIAL 5000 UNIT SUBCUT ×2 (11:41→17:37)
--- NOTE | 2024-03-13 18:25 | PC.NURSE ---
Assumed care at 0700- pt. on Bipap 16/8 90%, O2 sats >92%. Pt. arousable to name, A&O to self only, tracking, and following simple commands. Pt. Making needs known, pt. stating I am thirsty . MAPs sustaining > 65, levophed gtt titrated and paused per EMAR. Urine output ranging from 30-75 cc/hr. Temp 96.4- senthil huggar applied. At approx. 1300 Pt. attempted to pull off Bipap multiple times. Pt. trialled on HFNC 55L 100% with RT at bedside. Pt. O2 sats sustaining 80-84% on HFNC. Pt. placed back on Bipap 16/8 90% by RT. At Approx. 1700 Pt O2 sats sustaining 88-90%, MD aware- FiO2 increased to 100% and lasix given per MAR. Pt. with increasing lethargy, arousable with physical stimuli, no longer following commands. Pt. SBPs 80s-90s with MAPs 60-70, levophed gtt restarted and titrated per MAR. Urine output <25 cc/hr. Pt.- notified, no new orders at this time. Current VS HR 91, BP 92/58 (66), O2 sat 95% on 100% FiO2, Temp 98.6. PRN oral care provided, Q2 repositioning performed. Hovermat system in place. Family at bedside and updated by this RN. Plan of care ongoing.
[2024-03-13 18:59] LABS: Venous Blood Gas Refer to POC result
[2024-03-13 19:30] LABS: Hematocrit 23.7 % (42.0-52.0); Hemoglobin 7.8 g/dl (14.0-18.0); Mean Corpuscular HGB Conc 32.9 g/dl (31.0-36.0); Mean Corpuscular Hemoglobin 29.8 pg (27.0-33.0); Mean Corpuscular Volume 90.5 fL (80.0-98.0); Mean Platelet Volume 10.5 fL (9.4-12.4); Red Blood Count 2.62 X10*6/uL (4.60-5.80); Red Cell Distribution Width 15.9 % (11.0-16.0); White Blood Count 7.6 X10*3/uL (4.8-10.8)
[2024-03-13 19:31] LABS: NRBC Pct Auto 3.4 /100WBC (0.0-0.2); Platelet Count 89 X10*3/uL (160-400)
[2024-03-13] MEDS: Norepinephrine Bitartrate/D5W 8 MG/250 ML PLAST..BAG 12.68 MG IVCONT (19:57)
[2024-03-13 20:02] LABS: Anion Gap 17 (12-20); Blood Urea Nitrogen 69 mg/dL (9-16); Calcium 9.6 mg/dL (8.4-10.2); Carbon Dioxide 32 mmol/L (22-29); Chloride 104 mmol/L (96-108); Creatinine Clr Calc Pharmacy 29.1; Estimated Glomerular Filt Rate 24; Glucose Random 184 mg/dL (60-115); Magnesium 2.6 mg/dL (1.6-2.6); Phosphorus 5.4 mg/dL (2.7-4.5); Potassium 4.5 mmol/L (3.3-5.1); Sodium 148 mmol/L (135-145)
[2024-03-13] MEDS: Parenteral Nutrition 1,440 ML 60 ML IV (21:36)
[2024-03-14] VITALS (55 sets, daily range): BP systolic 81–157; BP diastolic 41–81; PULSE 75–93; RESP 25–52; TEMP 35.9–36.7; O2SAT 88–97; BMI 29.4
[2024-03-14] MEDS: Heparin Sodium,Porcine 5,000 UNIT/ML VIAL 5000 UNIT SUBCUT ×3 (02:11→18:15)
[2024-03-14] MEDS: Meropenem 1 GM VIAL 2 GM IVPUSH ×2 (02:13→14:41)
[2024-03-14 04:57] LABS: VBG Base Excess 9.4 mmol/L; VBG HCO3 36 mmol/L (22-26); VBG pCO2 61 mmHg; VBG pH 7.37 (7.32-7.43); VBG pO2 70 mmHg
[2024-03-14 05:00] LABS: Hemoglobin 7.8 g/dl (14.0-18.0); Mean Corpuscular HGB Conc 32.5 g/dl (31.0-36.0); Mean Corpuscular Hemoglobin 29.3 pg (27.0-33.0); Mean Corpuscular Volume 90.2 fL (80.0-98.0); Mean Platelet Volume 10.9 fL (9.4-12.4); Red Blood Count 2.66 X10*6/uL (4.60-5.80); Red Cell Distribution Width 15.9 % (11.0-16.0)
[2024-03-14 05:01] LABS: NRBC Pct Auto 3.8 /100WBC (0.0-0.2); Platelet Count 94 X10*3/uL (160-400); WBC ABN SCTR FOR CBC 1; White Blood Count 10.1 X10*3/uL (4.8-10.8)
[2024-03-14 05:15] LABS: Albumin Level 3.7 g/dL (3.5-5.0); Anion Gap 17 (12-20); Blood Urea Nitrogen 79 mg/dL (9-16); Calcium 10.5 mg/dL (8.4-10.2); Carbon Dioxide 32 mmol/L (22-29); Chloride 102 mmol/L (96-108); Creatinine Clr Calc Pharmacy 28.8; Estimated Glomerular Filt Rate 24; Glucose Random 346 mg/dL (60-115); Magnesium 2.6 mg/dL (1.6-2.6); Potassium 4.8 mmol/L (3.3-5.1); Sodium 146 mmol/L (135-145)
[2024-03-14 05:23] LABS: Band Neutrophils Percent 9 % (3-5); Lymphocytes Absolute Manual 0.2 X10*3/uL (1.2-4.9); Lymphocytes Percent Manual 2 % (20-40); Metamyelocytes Absolute 0.3 X10*3/uL; Metamyelocytes Percent 3 %; Monocytes Absolute Manual 0.1 X10*3/uL (0.1-1.2); Monocytes Percent Manual 1 % (2-11); Neutrophils Absolute Manual 9.5 X10*3/uL (2.0-8.3); Neutrophils Percent Manual 85 % (45-73); Nucleated Red Blood Cells 7 /100WBC (0-0)
[2024-03-14 05:24] LABS: Large Platelet PRESENT; Platelet Estimate DECREASED (NORMAL); Platelet Morphology Comment NOTED; RBC Morphology NOTED; Schistocytes 1+ (0-2) /OIF; Spherocytes 2+ (3-5) /OIF; Stomatocytes 1+ (5-14) /OIF; Target Cells 2+ (15-30) /OIF
[2024-03-14 05:25] LABS: Dohle Bodies PRESENT; Hypochromasia 1+ (5-14) /OIF; Tear Drop Cells 1+ (0-2) /OIF; Toxic Granulation PRESENT
[2024-03-14 05:26] LABS: Macrocytosis 1+ (5-14) /OIF; Microcytosis 1+ (5-14) /OIF
[2024-03-14 07:07] LABS: Glucose, Whole Blood 310 mg/dL (60-115)
[2024-03-14] MEDS: Norepinephrine Bitartrate/D5W 8 MG/250 ML PLAST..BAG 16.3 MG IVCONT (07:07)
[2024-03-14] MEDS: Insulin Regular/NS 100 UNIT/100 ML PLAST..BAG IVCONT (07:07)
[2024-03-14 08:04] LABS: Glucose, Whole Blood 336 mg/dL (60-115)
[2024-03-14 09:09] LABS: Glucose, Whole Blood 312 mg/dL (60-115)
[2024-03-14] MEDS: Furosemide 40 MG/4 ML VIAL IVPUSH ×2 (09:20→20:12)
[2024-03-14] MEDS: [UNRECOGNIZED DRUG - OTHER] 1 EACH EYE-BOTH ×2 (09:20→21:37)
[2024-03-14] MEDS: methylPREDNISolone Sod Succ 40 MG/ML VIAL 50 MG IVPUSH (09:20)
[2024-03-14 09:59] LABS: Glucose, Whole Blood 328 mg/dL (60-115)
--- NOTE | 2024-03-14 10:03 | PM.CCPN ---
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 On ER evaluation patient in shock with poor response to initial IV fluid resuscitation requiring pressor support. Also, with significant hypoxia requiring maximum support from high-flow nasal cannula. Per family members patient with history of multiple resistant infections. Started on meropenem, vancomycin, stress dose steroids and admitted to intensive care unit. 1/2 blood cultures with Gram-negative rods on stain. No events overnight. Remains significantly encephalopathic and BiPAP dependent. Critical Care Time (minutes): 60 Physical Exam Vital Signs: Vital Signs: Last Vital Signs Temp 97.9 F 03/14/24 10:00 Pulse 80 03/14/24 10:00 Resp 30 H 03/14/24 10:00 BP 131/73 03/14/24 10:00 Pulse Ox 94 03/14/24 10:00 O2 Del Method BiPAP 03/14/24 10:00 O2 Flow Rate 55 03/13/24 02:00 FiO2 80 03/14/24 10:00 BMI result Body Mass Index 29.4 Const: General: no acute distress, confusion and lethargic Orientation/consciousness: confusion and lethargic Eyes: Sclerae: sclerae normal EOM: EOMs intact bilaterally Neck: Neck: Yes no lymphadenopathy, Yes trachea midline and Yes supple Resp: Effort & Inspection: normal respiratory effort and no respiratory distress Auscultation: crackles bilateral Cardio: Rate: regular rate Rhythm: regular rhythm Heart sounds: no gallops, no murmurs and no rubs GI: Palpation (GI): Soft to palpation and Other GI palpation findings present ( Nontender) Auscultation: normal bowel sounds Neuro: General: confusion Extrem: General: No clubbing, No cyanosis and Yes edema (Trace bilateral) Objective Data Labs 03/14/24 04:47 03/14/24 04:47 Labs: Laboratory Results - last 24 hr 03/13/24 03/13/24 03/13/24 04:37 19:22 19:39 WBC 7.6 RBC 2.62 L Hgb 7.8 L Hct 23.7 L MCV 90.5 MCH 29.8 MCHC 32.9 RDW 15.9 Plt Count 89 L MPV 10.5 Immature Gran % (Auto) Neut % (Auto) Lymph % (Auto) [place] % (Auto) Eos % (Auto) Baso % (Auto) Lymph # (Auto) [place] # (Auto) Eos # (Auto) Baso # (Auto) Abs Immat Gran (auto) Absolute Neuts (auto) Absolute Nucleated RBC 0.260 H Nucleated RBC % (auto) 3.4 H Neutrophils % (Manual) Band Neutrophils % Lymphocytes % (Manual) Monocytes % (Manual) Metamyelocytes % Abs Neuts (Manual) Lymphocytes # (Manual) Monocytes # (Manual) Metamyelocytes # Nucleated RBCs Toxic Granulation Dohle Bodies Platelet Estimate Large Platelets Plt Morphology Comment RBC Morphology Hypochromasia Microcytosis Macrocytosis Spherocytes Target Cells Tear Drop Cells Stomatocytes Schistocytes VBG pH VBG pCO2 VBG pO2 VBG HCO3 VBG O2 Saturation VBG Base Excess Sodium 148 H Potassium 4.5 Chloride 104 Carbon Dioxide 32 H Anion Gap 17 BUN 69 H Creatinine 2.64 H Estim Creat Clear Calc 29.1 Estimated GFR 24 POC Glucose Random Glucose 184 H Calcium 9.6 Phosphorus 5.4 H Magnesium 2.6 Albumin Triglycerides 71 03/14/24 03/14/24 03/14/24 04:46 04:47 07:04 WBC 10.1 RBC 2.66 L Hgb 7.8 L Hct 24.0 L MCV 90.2 MCH 29.3 MCHC 32.5 RDW 15.9 Plt Count 94 L MPV 10.9 Immature Gran % (Auto) Cancelled Neut % (Auto) Cancelled Lymph % (Auto) Cancelled [place] % (Auto) Cancelled Eos % (Auto) Cancelled Baso % (Auto) Cancelled Lymph # (Auto) Cancelled [place] # (Auto) Cancelled Eos # (Auto) Cancelled Baso # (Auto) Cancelled Abs Immat Gran (auto) Cancelled Absolute Neuts (auto) Cancelled Absolute Nucleated RBC 0.380 H Nucleated RBC % (auto) 3.8 H Neutrophils % (Manual) 85 H Band Neutrophils % 9 H Lymphocytes % (Manual) 2 L Monocytes % (Manual) 1 L Metamyelocytes % 3 Abs Neuts (Manual) 9.5 H Lymphocytes # (Manual) 0.2 L Monocytes # (Manual) 0.1 Metamyelocytes # 0.3 Nucleated RBCs 7 H Toxic Granulation PRESENT Dohle Bodies PRESENT Platelet Estimate DECREASED Large Platelets PRESENT Plt Morphology Comment NOTED RBC Morphology NOTED Hypochromasia 1+ (5-14) Microcytosis 1+ (5-14) Macrocytosis 1+ (5-14) Spherocytes 2+ (3-5) Target Cells 2+ (15-30) Tear Drop Cells 1+ (0-2) Stomatocytes 1+ (5-14) Schistocytes 1+ (0-2) VBG pH 7.37 VBG pCO2 61 VBG pO2 70 VBG HCO3 36 H VBG O2 Saturation 94.0 VBG Base Excess 9.4 Sodium 146 H Potassium 4.8 Chloride 102 Carbon Dioxide 32 H Anion Gap 17 BUN 79 H Creatinine 2.66 H Estim Creat Clear Calc 28.8 Estimated GFR 24 POC Glucose 310 H Random Glucose 346 H Calcium 10.5 H D Phosphorus 5.0 H Magnesium 2.6 Albumin 3.7 Triglycerides 03/14/24 03/14/24 03/14/24 08:01 09:05 09:55 WBC RBC Hgb Hct MCV MCH MCHC RDW Plt Count MPV Immature Gran % (Auto) Neut % (Auto) Lymph % (Auto) [place] % (Auto) Eos % (Auto) Baso % (Auto) Lymph # (Auto) [place] # (Auto) Eos # (Auto) Baso # (Auto) Abs Immat Gran (auto) Absolute Neuts (auto) Absolute Nucleated RBC Nucleated RBC % (auto) Neutrophils % (Manual) Band Neutrophils % Lymphocytes % (Manual) Monocytes % (Manual) Metamyelocytes % Abs Neuts (Manual) Lymphocytes # (Manual) Monocytes # (Manual) Metamyelocytes # Nucleated RBCs Toxic Granulation Dohle Bodies Platelet Estimate Large Platelets Plt Morphology Comment RBC Morphology Hypochromasia Microcytosis Macrocytosis Spherocytes Target Cells Tear Drop Cells Stomatocytes Schistocytes VBG pH VBG pCO2 VBG pO2 VBG HCO3 VBG O2 Saturation VBG Base Excess Sodium Potassium Chloride Carbon Dioxide Anion Gap BUN Creatinine Estim Creat Clear Calc Estimated GFR POC Glucose 336 H 312 H 328 H Random Glucose Calcium Phosphorus Magnesium Albumin Triglycerides Microbiology Microbiology Results: Microbiology 03/11/24 11:10 Blood - Venous Blood Culture - Preliminary Gram negative yash 03/11/24 11:10 Blood - Venous Blood Culture - Preliminary No growth after 48 hours. Progress Note: A&P Assessment and plan (1) Acute renal failure: Status: Acute (2) GVHD (graft versus host disease): Status: Acute (3) AML (acute myeloblastic leukemia): Status: Acute (4) Status post bone marrow transplant: Status: Acute (5) Acute respiratory failure with hypoxia: Status: Acute (6) Septic shock: Status: Acute (7) Acute right heart failure: Status: Acute Plan Assessment: 73-year-old gentleman with underlying AML status post stem cell transplant on chronic prednisone in DNR DNI status admitted with septic shock with likely pneumonic source and acute hypoxic respiratory failure Plan: Neuro: Septic encephalopathy, expect to improve with resolution of sepsis. Cardiac: Septic shock, continue to titrate off pressor support as tolerated, improving. Pulmonary: Acute hypoxic respiratory failure secondary to pulmonary edema, continue to titrate off supplemental oxygen/BiPAP as tolerated. Underlying DNI code status verified with . Renal: Acute renal failure, likely secondary to shock. Non oliguric. Continue to monitor renal indices and urine output. Endo: On chronic prednisone, initially on stress dose steroids, now titrated down to IV Solu-Medrol. GI: No acute issues. ID: Likely septic shock with pneumonic source. Underlying history of multiple drug-resistant organisms. Continue meropenem and vancomycin. Continue Bactrim/acyclovir/Cresemba prophylaxis. Heme/Onc: Underlying history of AML status post bone marrow stem cell transplant complicated by [id number] disease. Continue GVHD medications. Psych: No acute issues. Miscellaneous: Discussions of goals of care are ongoing with family. Prophylaxis: Heparin Diet: TPN Critical care time spent: 60 minutes Quality Stroke Does the patient have a stroke diagnosis?: No VTE Prior VTE?: No VTE Risk Level:: Medical - moderate - high VTE Device Contraindication: Treatment Not Indicated VTE Drug Contraindication: N/A - Med Ordered
[2024-03-14] MEDS: bisacodyL 10 MG SUPP.RECT PR (10:25)
[2024-03-14 11:15] LABS: Glucose, Whole Blood 273 mg/dL (60-115)
[2024-03-14 12:07] LABS: Glucose, Whole Blood 268 mg/dL (60-115)
[2024-03-14 13:07] LABS: Glucose, Whole Blood 249 mg/dL (60-115)
[2024-03-14 14:10] LABS: Glucose, Whole Blood 250 mg/dL (60-115)
[2024-03-14 14:59] LABS: Venous Blood Gas Refer to POC result
[2024-03-14 15:05] LABS: Glucose, Whole Blood 207 mg/dL (60-115)
[2024-03-14 15:57] LABS: Glucose, Whole Blood 211 mg/dL (60-115)
[2024-03-14] MEDS: fentaNYL citrate/PF 100 MCG/2 ML VIAL 50 MCG IVPUSH ×4 (16:25→23:29)
[2024-03-14] MEDS: Norepinephrine Bitartrate/D5W 8 MG/250 ML PLAST..BAG 38.04 MG IVCONT (16:26)
[2024-03-14 17:00] LABS: Glucose, Whole Blood 187 mg/dL (60-115)
[2024-03-14 17:59] LABS: Glucose, Whole Blood 169 mg/dL (60-115)
[2024-03-14 18:59] LABS: Glucose, Whole Blood 155 mg/dL (60-115)
[2024-03-14 20:00] LABS: Glucose, Whole Blood 154 mg/dL (60-115)
[2024-03-14 20:11] LABS: Hematocrit 25.8 % (42.0-52.0); Hemoglobin 8.4 g/dl (14.0-18.0); Mean Corpuscular HGB Conc 32.6 g/dl (31.0-36.0); Mean Corpuscular Volume 92.1 fL (80.0-98.0); Mean Platelet Volume 11.1 fL (9.4-12.4); NRBC Pct Auto 3.7 /100WBC (0.0-0.2); Platelet Count 112 X10*3/uL (160-400); Red Cell Distribution Width 15.8 % (11.0-16.0); White Blood Count 13.4 X10*3/uL (4.8-10.8)
[2024-03-14] MEDS: Insulin Regular/NS 100 UNIT/100 ML PLAST..BAG 6 UNIT IVCONT (20:21)
[2024-03-14] MEDS: Norepinephrine Bitartrate/NS 32 MG/250 ML PLAST..BAG 11.19 MG IVCONT (20:27)
[2024-03-14 20:28] LABS: Albumin Level 3.7 g/dL (3.5-5.0); Anion Gap 14 (12-20); Blood Urea Nitrogen 93 mg/dL (9-16); Carbon Dioxide 35 mmol/L (22-29); Chloride 103 mmol/L (96-108); Creatinine Clr Calc Pharmacy 31.8; Estimated Glomerular Filt Rate 27; Glucose Random 167 mg/dL (60-115); Magnesium 3.1 mg/dL (1.6-2.6); Phosphorus 5.3 mg/dL (2.7-4.5); Potassium 5.1 mmol/L (3.3-5.1); Sodium 147 mmol/L (135-145)
[2024-03-14] MEDS: Parenteral Nutrition 1,920 ML 80 ML IV (21:34)
[2024-03-14 21:55] LABS: Glucose, Whole Blood 121 mg/dL (60-115)
[2024-03-14 21:59] LABS: Glucose, Whole Blood 106 mg/dL (60-115)
[2024-03-14 23:57] LABS: Glucose, Whole Blood 163 mg/dL (60-115)
[2024-03-15] VITALS: BP 118/65; PULSE 85; RESP 38; RESP 44; TEMP 36.8; O2SAT 90
[2024-03-15 00:19] VITALS: BP 136/71; PULSE 86
[2024-03-15 00:32] VITALS: RESP 50
[2024-03-15] MEDS: fentaNYL citrate/PF 100 MCG/2 ML VIAL 50 MCG IVPUSH (00:32)
[2024-03-15] MEDS: fentaNYL citrate/NS 1,000 MCG/100 ML PLAST..BAG 5 MCG IVCONT (00:53)
--- NOTE | 2024-03-15 00:53 | HO.HCP ---
Health Care Proxy Invocation Health Care Proxy Declaration: I, Devora Valdes, on the date cited below, have determined that, Yaniv Medeiros , lacks the capacity to make or communicate, informed health care decision. This determination is made in accordance with accepted standards of medical judgment and pursuant to [place] c. 201[place], the [place] Health Care Proxy Law. The cause, nature, extent and probable duration of the patient's inapacity are described below: Cause: Encephalopathy, acute respiratory failure Nature:natural Extent: critical Probable Duration of Patient's Incapacity: fatal
--- NOTE | 2024-03-15 00:56 | PM.EVENT ---
Documented by User: Devora Valdes NP 03/15/24 01:48 Event Note Date of Service: 03/15/24 Event Note: Deterioration of patient's clinical status over night, patient requiring max support on BIPAP, Respiratory rate? high 40s to 50s? despite Lasix administration and opioids. Significant increase in pressors requirement.? Code status was DNR /DNI,? family was asked to come to the bedside. Decided to change code status to initiate comfort measures only.? At? 0115 patient became bradycardic and eventually asystole at 0120. On my assessment, the patient had absent peripheral pulses.? Pupils fixed and dilated.? Absent heart sounds? and no spontaneous breathing.? Official time of 0120.? Family at bedside. Not a medical exam candidate.? Organ donation was notified by nursing.? Attending Dr العلي notified? Time Spent With Patient Time: Total time managing care of this patient today ____ minutes. Documented by User: Herrera العلي MD 03/16/24 15:28 Event Note Date of Service: 03/16/24
[2024-03-15] MEDS: LORazepam 2 MG/ML VIAL IVPUSH (01:01)
[2024-03-15 01:05] VITALS: BP 118/65; PULSE 85
[2024-03-15 01:13] VITALS: RESP 50
--- NOTE | 2024-03-15 01:48 | PM.DDS ---
Discharge Sum: Prov Provider Primary care physician: Chauncey Dempsey MD Admitting clinician: Herrera العلي Attending physician on admission: Herrera العلي Consults: 03/12/24 12:27 Consult to Wound Care Routine Reason for consultation: chronic lower extremities wounds Pronouncing clinician: Devora Valdes Discharge Sum: Diag PCOD Cause of : Acute respiratory failure Contributing Factors (1) Acute respiratory failure with hypoxia: (2) Septic shock: (3) Acute right heart failure: (4) Acute renal failure: (5) GVHD (graft versus host disease): (6) AML (acute myeloblastic leukemia): (7) Status post bone marrow transplant: Discharge Sum: Summary Date and Time Date of admission: 03/11/24 14:11 Date of : 03/15/24 Time of : 01:20 Summary Details: 73-year-old gentleman with underlying history of CKD stage 3, BPH, congestive heart failure, 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 On ER evaluation patient in shock with poor response to initial IV fluid resuscitation requiring pressor support. Per family members patient with history of multiple resistant infections.? Started on meropenem, vancomycin, stress dose steroids and admitted to intensive care unit.? 1/2 blood cultures with Gram-negative rods on stain. Initially hypoxic requiring maximum support from high-flow nasal cannula, but later required BIPAP Support.? Tonight, had deterioration of patient's clinical status, patient requiring max support on BIPAP, Respiratory rate? high 40s to 50s? despite Lasix administration and opioids. Significant increase in pressors requirement.? Code status was DNR /DNI,? family was asked to come to the bedside. Decided to change code status to initiate comfort measures only.? At? 0115 patient became bradycardic and eventually asystole at 0120. On my assessment, the patient had absent peripheral pulses.? Pupils fixed and dilated.? Absent heart sounds? and no spontaneous breathing.? Official time of 0120.? Family at bedside. Not a medical exam candidate.? Organ donation was notified by nursing.? Attending Dr العلي notified? Additional Data Attending physician: Herrera العلي MD
--- NOTE | 2024-03-15 02:16 | PC.NURSE ---
Upon initial assessment at approximately 1900- pt lethargic, opens eyes to name, and able to follow simple commands. Speech is unclear/ moaning. NSR with PACs on tele, HR 70-80s. Levophed gtt titrated per JUL to maintain MAP >65. Pt on BIPAP 16/8 100%, SPO2 90-92%. Breathing is shallow/ labored. Diminished lung sounds throughout. Morton catheter in place, draining yellow urine. Pt receiving PPN and Insulin gtt per JUL. Labs drawn at 1999. One time dose of 40mg IVP lasix given with minimal effect. Overnight pt having increased work of breathing, RR increased to 40-50s, SPO2 84-88%. PRN Fentanyl given for work of breathing with some effect. RECEPTION CLERK made aware. RT to bedside- adjusted BIPAP settings to 20/10 100%. RECEPTION CLERK contacted family. Family to bedside at approximately 0030. Patient was changed to comfort measures only. Fentanyl gtt started and titrated per JUL. TOD 0120. Per patients Jaja- [facility] for services. Spoke with Laron at [facility] at 0148, pt was declined. Case #[id number]
== END 2024-03-15 01:20 | disposition expired | DRG 871 ==
LOC: HO.ED 14:20 → HO.EDOVER 14:25 → HO.ICU 14:37
PROVIDERS: Physician Assistant; Registered Nurse Community Health; Admitting Provider Internal Medicine Pulmonary Disease; Emergency Provider Emergency Medicine; PCP Student in an Organized Health Care Education/Training Program; Visit Provider Internal Medicine Pulmonary Disease
DX: A41.9 Sepsis, unspecified organism (principal); G93.41 Metabolic encephalopathy; J18.9 Pneumonia, unspecified organism; R65.21 Severe sepsis with septic shock; J96.01 Acute respiratory failure with hypoxia; Z94.84 Stem cells transplant status; C92.00 Acute myeloblastic leukemia, not having achieved remission; D89.813 Graft-versus-host disease, unspecified; N17.9 Acute kidney failure, unspecified; I50.811 Acute right heart failure; E66.9 Obesity, unspecified; N40.0 Benign prostatic hyperplasia without lower urinary tract symptoms; Z66 Do not resuscitate; Z68.29 Body mass index [BMI] 29.0-29.9, adult; Z20.822 Contact with and (suspected) exposure to COVID-19; Z87.891 Personal history of nicotine dependence; Z79.51 Long term (current) use of inhaled steroids; Z79.82 Long term (current) use of aspirin; Z79.899 Other long term (current) drug therapy
CPT/HCPCS: 0241U; 36415; 70450; 71045; 80048; 80053; 80076; 80307; 81001; 82040; 82140; 82803; 82947; 83605; 83690; 83735; 83880; 84100; 84478; 84484; 85007; 85025; 85027; 85379; 85610; 85730; 86850; 86900; 86901; 86923; 87040; 87077; 87186; 87205; 93005; 93306; 93970; 94660; 99285; J0133; J0456; J0692; J1644; J1720; J1940; J2060; J2185; J2919; J3010; J3370; P9040; P9047

== ENCOUNTER → 2024-03-11 11:05 | Outpatient (BNV) | payer MEDICARE, SELFPAY | PROVIDERS: Admitting Provider Internal Medicine Pulmonary Disease; Emergency Provider Emergency Medicine; Visit Provider Internal Medicine Cardiovascular Disease | DX: R94.31 Abnormal electrocardiogram [ECG] [EKG] (principal); I49.1 Atrial premature depolarization; R41.82 Altered mental status, unspecified | CPT/HCPCS: 93010 ==

== ENCOUNTER 2024-03-11 14:11 | Outpatient (BNV) | payer MEDICARE, SELFPAY | END 2024-03-12 13:00 | PROVIDERS: Admitting Provider Internal Medicine Pulmonary Disease; Emergency Provider Emergency Medicine; PCP Student in an Organized Health Care Education/Training Program; Visit Provider Internal Medicine Cardiovascular Disease | DX: I27.20 Pulmonary hypertension, unspecified (principal); R93.1 Abnormal findings on diagnostic imaging of heart and coronary circulation | CPT/HCPCS: 93306 ==

== ENCOUNTER → 2024-03-11 14:11 | Outpatient (BNV) | payer MEDICARE, SELFPAY | PROVIDERS: Admitting Provider Internal Medicine Pulmonary Disease; Emergency Provider Emergency Medicine; Visit Provider Internal Medicine Pulmonary Disease | DX: D89.813 Graft-versus-host disease, unspecified (principal); Z94.81 Bone marrow transplant status; C92.00 Acute myeloblastic leukemia, not having achieved remission; A41.9 Sepsis, unspecified organism; N17.9 Acute kidney failure, unspecified; J96.01 Acute respiratory failure with hypoxia; R65.21 Severe sepsis with septic shock; I50.811 Acute right heart failure | CPT/HCPCS: 99291 ==

== ENCOUNTER → 2024-03-11 14:11 | Outpatient (BNV) | payer MEDICARE, SELFPAY | PROVIDERS: Admitting Provider Internal Medicine Pulmonary Disease; Emergency Provider Emergency Medicine; PCP Student in an Organized Health Care Education/Training Program; Visit Provider Registered Nurse Community Health | DX: J96.01 Acute respiratory failure with hypoxia (principal); A41.9 Sepsis, unspecified organism; R65.21 Severe sepsis with septic shock; I50.811 Acute right heart failure | CPT/HCPCS: 99239; 99499 ==